=== PATIENT | male | born 1945 | race Caucasian/White ===

== ENCOUNTER 2017-05-03 07:52 | Day surgery (SDC) | payer MEDICARE, OTHER ==
[2017-05-03] MEDS ORDERED: LACTATED RINGERS 1,000 ML IV ONE (08:26)
[2017-05-03] MEDS ORDERED: MIDAZOLAM 2 MG/2 ML VIAL IVP ONE (09:11)
[2017-05-03] MEDS ORDERED: fentaNYL 100 MCG/2 ML VIAL IVP ONE (09:11)
[2017-05-03 10:47] VITALS: BP 268/67
== END 2017-05-03 07:53 | disposition home or self-care (01) ==
LOC: SDS 07:52
PROVIDERS: ATTEND Internal Medicine
PROC: 0DBE8ZX Excision of Large Intestine, Via Natural or Artificial Opening Endoscopic, Diagnostic (ICD-10-PCS; 2017-05-03)
PROC: 0DB58ZX Excision of Esophagus, Via Natural or Artificial Opening Endoscopic, Diagnostic (ICD-10-PCS; 2017-05-03)
PROC: 0DB68ZX Excision of Stomach, Via Natural or Artificial Opening Endoscopic, Diagnostic (ICD-10-PCS; 2017-05-03)
PROC: 0DBK8ZZ Excision of Ascending Colon, Via Natural or Artificial Opening Endoscopic (ICD-10-PCS; principal; 2017-05-03 09:00)
PROC: 0DBL8ZZ Excision of Transverse Colon, Via Natural or Artificial Opening Endoscopic (ICD-10-PCS; 2017-05-03 09:00)
DX: R19.7 Diarrhea, unspecified (principal); D12.2 Benign neoplasm of ascending colon; D12.3 Benign neoplasm of transverse colon; K25.9 Gastric ulcer, unspecified as acute or chronic, without hemorrhage or perforation; R19.4 Change in bowel habit; R13.10 Dysphagia, unspecified; K59.00 Constipation, unspecified; I10 Essential (primary) hypertension; I25.10 Atherosclerotic heart disease of native coronary artery without angina pectoris; I25.2 Old myocardial infarction; Z95.1 Presence of aortocoronary bypass graft
CPT/HCPCS: 43239; 45380; 45385; J7120; 88305

== ENCOUNTER 2017-05-17 15:29 | Outpatient (CLI) | payer MEDICARE, OTHER ==
[2017-05-17 18:50] LABS: ALBUMIN/GLOBULIN RATIO 1.6 (1.0-2.2); BILIRUBIN,TOTAL 0.8 mg/dL (0.2-1.0); BUN - BLOOD UREA NITROGEN 22 mg/dL (6-20); CALCIUM 9.2 mg/dL (8.5-10.3); CARBON DIOXIDE - CO2 28 mmol/L (21-32); CHLORIDE 105 mmol/L (101-111); CHOL/HDL RATIO 2.5 (<5.0); CHOLESTEROL 114 mg/dL; CREATININE 0.6 mg/dL (0.6-1.2); GFR - MDRD 132 (>89); GLUCOSE 89 mg/dL (70-100); HDL CHOLESTEROL 46 mg/dL; LDL/HDL RATIO 1.2 (<3.6); POTASSIUM 3.7 mmol/L (3.5-5.0); SODIUM 139 mmol/L (135-145); TOTAL PROTEIN 6.8 g/dL (6.7-8.2); TRIGLYCERIDES 61 mg/dL; VLDL CHOLESTEROL 12 mg/dL
[2017-05-17 19:01] LABS: H. PYLORI IGG ANTIBODY Negative (Negative); HPYLORI NEG QC Negative (Negative); HPYLORI POS QC POSITIVE (Positive)
== END 2017-05-17 15:30 | disposition home or self-care (01) ==
LOC: LAB.F 15:29
PROVIDERS: ATTEND Internal Medicine
DX: K25.3 Acute gastric ulcer without hemorrhage or perforation (principal); E78.00 Pure hypercholesterolemia, unspecified; I25.10 Atherosclerotic heart disease of native coronary artery without angina pectoris; R20.2 Paresthesia of skin
CPT/HCPCS: 36415; 80053; 80061; 84443; 87339

== ENCOUNTER 2017-07-04 17:39 | Emergency (ER) | payer MEDICARE, OTHER ==
--- NOTE | 2017-07-04 18:37 | XRAY Preliminary Report ---
Exam: XR Shoulder 3 View RT IMPRESSION: Mild separation right AC joint of indeterminate age. Correlate clinically. [facility] SITE ID: [id number]
--- NOTE | 2017-07-04 18:43 | XRAY Report ---
EXAM: RIGHT SHOULDER RADIOGRAPHY EXAM DATE: 07/04/2017 06:09 PM. CLINICAL HISTORY: Pain after an injury. COMPARISON: Two-view chest 07/07/2015. TECHNIQUE: 3 views. FINDINGS: Bones: Normal. No fracture or bone lesion. Joints: 8 mm elevation right clavicle relative to the acromion without bony reactive changes. Normal glenohumeral joint. Remote sternotomy. Soft tissues: Mild skin contour abnormality with equivocal edema over the AC joint. IMPRESSION: Mild separation right AC joint of indeterminate age. Correlate clinically. [facility] Referring Provider Line: [phone] SITE ID: [id number]
[2017-07-04 19:43] VITALS: BP 156/79
--- NOTE | 2017-07-04 20:10 | ED Physician Documentation ---
PD HPI UPPER EXT INJURY - Stated complaint Stated Complaint: RT SHOULDER INJ - Chief complaint Chief Complaint: Ext Problem - History obtained from History obtained from: Patient, Friend - History of Present Illness Location: Right, Shoulder Type of injury: Fall Where injury occurred: Street Timing - onset: How many hours ago (1) Timing - details: Abrupt onset Improved by: Rest, Ice, Immobilization Worsened by: Moving, Palpating Associated symptoms: No: Weakness, Numbness Contributing factors: No: Anticoagulated, Prior ortho surgery, Prosthetic joint Similar symptoms before: Has not had sx before Recently seen: Not recently seen - Additonal information Additional information: Patient is a 71 year old male who is presenting to the emergency department for shoulder pain. Patient states that he slipped earlier today and landed on his right side and his shoulder hit first taking the impact. patient denies any head trauma, or any loc. Review of Systems Constitutional: denies: Fever, Myalgias Eyes: denies: Loss of vision, Decreased vision Ears: denies: Ear pain, Drainage/discharge Nose: denies: Epistaxis Throat: denies: Dental pain / toothache Cardiac: denies: Chest pain / pressure, Palpitations Respiratory: denies: Cough, Wheezing GI: denies: Nausea, Vomiting Skin: denies: Abrasion (s), Laceration (s) Musculoskeletal: reports: Extremity pain, Joint pain. denies: Back pain Neurologic: denies: Generalized weakness, Focal weakness, Numbness, Syncope, Headache, Head injury, LOC Endocrine: denies: Easy bruising / bleeding Immunocompromised: denies: Immunocompromised PD PAST MEDICAL HISTORY - Past Medical History Past Medical History: Yes Cardiovascular: Hypertension, High cholesterol, Coronary artery disease, [place], Arrhythmia Respiratory: None Neuro: None Endocrine/Autoimmune:  GI: GERD, Colon polyps, Other : None HEENT: None Psych:  Musculoskeletal: Osteoarthritis Derm: None - Past Surgical History Past Surgical History: Yes General: Appendectomy, Colonoscopy, Other Ortho: Spine surgery Cardiovascular: CABG, Coronary stent - Present Medications Home Medications: Ambulatory Orders Medication Instructions Recorded Confirmed Aspirin 81 mg PO DAILY 07/14/13 07/04/17 Carvedilol [Coreg] 6.25 mg PO BID 07/14/13 07/04/17 Atorvastatin Calcium 1 tab PO DAILY 12/28/15 07/04/17 Omeprazole 20 mg ORAL DAILY 07/04/17 07/04/17 - Allergies Allergies/Adverse Reactions: Allergies Allergy/AdvReac Type Severity Reaction Status Date / Time No Known Drug Allergies Allergy Verified 07/04/17 17:47 - Social History Does the pt smoke?: No Smoking Status: Never smoker Does the pt drink ETOH?: No Does the pt have substance abuse?: No - Immunizations Immunizations are current?: Yes - POLST Patient has POLST: No PD ED PE NORMAL - Vitals Vital signs reviewed: Yes - General General: Alert and oriented X 3, No acute distress - HEENT HEENT: Atraumatic, PERRL, Pharynx benign - Neck Neck: Supple, no meningeal sign, No bony TTP - Cardiac Cardiac: RRR, No murmur - Respiratory Respiratory: No respiratory distress, Clear bilaterally - Abdomen Abdomen: Non distended - Back Back: No spinal TTP - Derm Derm: Normal color, Warm and dry, No rash - Neuro Neuro: Alert and oriented X 3, Normal speech - Psych Psych: Normal mood, Normal affect PD ED PE EXPANDED - Extremities Extremities: Right shoulder (tenderness and swelling of right shoulder. decreased rom secondary to pain, but full passive rom. minimal deformity) Results - Vitals Vitals: Vital Signs - 24 hr 07/04/17 07/04/17 17:44 19:42 Temperature 36.3 C L Heart Rate 58 L 60 Respiratory 18 18 Rate Blood Pressure 158/82 H 156/79 H O2 Saturation 99 98 Oxygen O2 Source Room air - Rads (name of study) shoulder x-ray Radiology: Final report received (minimal AC joint separation) PD MEDICAL DECISION MAKING - ED course Complexity details: reviewed old records, reviewed results, re-evaluated patient , considered differential, d/w patient ED course: Patient was seen and examined at bedside. patient had been sent for imaging. When patient returned he was found to have minimal AC separation. Patient had good peripheral pulses and was neurovascularly intact. Patient was placed in an immobilizer and was stable for discharge with outpatient follow up. Departure - Departure Disposition: 01 Home, Self Care Clinical Impression: Shoulder separation Condition: Good Instructions: ED Sprain AC Joint Follow-Up: Rey Latham MD [Provider Admit Priv/Credential] - Comments: Your symptoms today are being caused by a shoulder separation. It is a grade one separation and should heal on its own. You should ice your shoulder as needed and take motrin or tylenol as needed for pain. You should wear the brace for comfort. You should follow up with Dr. Latham as needed if your symptoms don't improve. Discharge Date/Time: 07/04/17 20:18
== END 2017-07-04 20:18 | disposition home or self-care (01) ==
LOC: ED 17:39
DX: S43.101A Unspecified dislocation of right acromioclavicular joint, initial encounter (principal); W19.XXXA Unspecified fall, initial encounter; Y92.410 Unspecified street and highway as the place of occurrence of the external cause; I25.2 Old myocardial infarction; I10 Essential (primary) hypertension; I25.10 Atherosclerotic heart disease of native coronary artery without angina pectoris; Z95.1 Presence of aortocoronary bypass graft; Z95.5 Presence of coronary angioplasty implant and graft; Z79.82 Long term (current) use of aspirin
CPT/HCPCS: 99283

== ENCOUNTER 2017-09-18 15:56 | Outpatient (CLI) | payer MEDICARE, OTHER ==
[2017-09-18 18:49] LABS: ALBUMIN/GLOBULIN RATIO 1.6 (1.0-2.2); BILIRUBIN,TOTAL 0.7 mg/dL (0.2-1.0); CALCIUM 9.5 mg/dL (8.5-10.3); CREATININE 0.7 mg/dL (0.6-1.2); POTASSIUM 4.2 mmol/L (3.5-5.0); TOTAL PROTEIN 6.9 g/dL (6.7-8.2)
== END 2017-09-18 15:57 | disposition home or self-care (01) ==
LOC: LAB.F 15:56
PROVIDERS: ATTEND Physician Assistant Medical
DX: Z51.81 Encounter for therapeutic drug level monitoring (principal)
CPT/HCPCS: 36415; 80053

== ENCOUNTER 2018-06-13 10:33 | Day surgery (SDC) | payer MEDICARE, OTHER ==
[2018-06-13] MEDS ORDERED: LACTATED RINGERS 1,000 ML IV ONE (11:15)
[2018-06-13] MEDS ORDERED: fentaNYL 250 MCG/5 ML VIAL IVP ONE (12:17)
[2018-06-13] MEDS ORDERED: MIDAZOLAM 2 MG/2 ML VIAL IVP ONE (12:17)
[2018-06-13 13:42] VITALS: BP 125/87
== END 2018-06-13 10:34 | disposition home or self-care (01) ==
LOC: SDS 10:33
PROVIDERS: ATTEND Internal Medicine
PROC: 0DBL8ZZ Excision of Transverse Colon, Via Natural or Artificial Opening Endoscopic (ICD-10-PCS; 2018-06-13)
PROC: 0DBN8ZZ Excision of Sigmoid Colon, Via Natural or Artificial Opening Endoscopic (ICD-10-PCS; 2018-06-13)
PROC: 0DBK8ZZ Excision of Ascending Colon, Via Natural or Artificial Opening Endoscopic (ICD-10-PCS; principal; 2018-06-13 12:00)
DX: Z09 Encounter for follow-up examination after completed treatment for conditions other than malignant neoplasm (principal); Z86.010 Personal history of colon polyps; D12.2 Benign neoplasm of ascending colon; D12.5 Benign neoplasm of sigmoid colon; D12.3 Benign neoplasm of transverse colon; K64.8 Other hemorrhoids
CPT/HCPCS: 45385; J3010; J7120

== ENCOUNTER 2019-04-22 08:00 | Outpatient (CLI) | payer MEDICARE, OTHER ==
[2019-04-22 12:20] LABS: CHOL/HDL RATIO 2.7 (<5.0); CHOLESTEROL 131 mg/dL; HDL CHOLESTEROL 48 mg/dL; LDL CHOLESTEROL,CALCULATED 51 mg/dL; LDL/HDL RATIO 1.1 (<3.6); VLDL CHOLESTEROL 32 mg/dL
== END 2019-04-22 23:59 | disposition home or self-care (01) ==
LOC: LAB 08:00
PROVIDERS: ATTEND Internal Medicine Cardiovascular Disease
DX: I25.10 Atherosclerotic heart disease of native coronary artery without angina pectoris (principal)
CPT/HCPCS: 36415; 80061; 83721

== ENCOUNTER 2020-07-27 08:00 | Outpatient (CLI) | payer MEDICARE, OTHER ==
[2020-07-27 20:29] LABS: BILIRUBIN,URINE NEGATIVE (NEGATIVE); GLUCOSE, URINE (UA) NEGATIVE (NEGATIVE); KETONES,URINE (UA) NEGATIVE (NEGATIVE); LEUKOCYTE ESTERASE, URINE NEGATIVE (NEGATIVE); NITRITE,URINE NEGATIVE (NEGATIVE); OCCULT BLOOD,URINE NEGATIVE (NEGATIVE); PROTEIN,URINE NEGATIVE (NEGATIVE); UROBILINOGEN,URINE 0.2 (NORMAL) E.U./dL (NORMAL)
[2020-07-27 20:31] LABS: CLARITY,URINE CLEAR (CLEAR)
[2020-07-27 20:50] LABS: BACTERIA,URINE None Seen /HPF (None Seen); RBC,URINE 0-5 /HPF (0-5); SQUAMOUS EPITHELIAL CELL,UR RARE Squamous (<= Few)
== END 2020-07-27 23:59 | disposition home or self-care (01) ==
LOC: LAB.R 08:00
PROVIDERS: ATTEND Emergency Medicine
DX: N34.2 Other urethritis (principal)
CPT/HCPCS: 81001; 87086

== ENCOUNTER 2021-07-02 07:43 | Outpatient (CLI) | payer MEDICARE, OTHER ==
[2021-07-02 07:56] LABS: BASOPHILS % (AUTO) 0.6 %; EOSINOPHILS # (AUTO) 0.3 10^3/uL (0.0-0.7); EOSINOPHILS % (AUTO) 4.3 %; HCT - HEMATOCRIT 46.5 % (42.0-52.0); HGB - HEMOGLOBIN 15.3 g/dL (14.0-18.0); LYMPHOCYTES # (AUTO) 2.3 10^3/uL (1.5-3.5); LYMPHOCYTES % (AUTO) 35.3 %; MEAN CORPUSCULAR HGB CONC 32.9 g/dL (32.0-36.0); MEAN CORPUSCULAR VOLUME 94.1 fL (80.0-94.0); MEAN PLATELET VOLUME 10.3 fL (7.4-11.4); MONOCYTES # (AUTO) 0.6 10^3/uL (0.0-1.0); MONOCYTES % (AUTO) 8.8 %; NEUTROPHILS # (AUTO) 3.3 10^3/uL (1.5-6.6); NEUTROPHILS % (AUTO) 50.7 %; PLT - PLATELET COUNT 226 10^3/uL (130-450); RED BLOOD COUNT 4.94 10^6/uL (4.70-6.10); RED CELL DISTRIBUTION WIDTH 13.1 % (12.0-15.0); WHITE BLOOD COUNT 6.5 x10^3/uL (4.8-10.8)
[2021-07-02 08:20] LABS: ALBUMIN 4.2 g/dL (3.2-5.5); ALBUMIN/GLOBULIN RATIO 1.4 (1.0-2.2); ALKALINE PHOSPHATASE 43 IU/L (42-121); ALT ALANINE AMINOTRANSFERASE 31 IU/L (10-60); AST ASPARTATE AMINOTRANSFERASE 25 IU/L (10-42); BILIRUBIN,TOTAL 0.9 mg/dL (0.2-1.0); BUN - BLOOD UREA NITROGEN 16 mg/dL (6-20); CALCIUM 9.1 mg/dL (8.5-10.3); CARBON DIOXIDE - CO2 28 mmol/L (21-32); CHLORIDE 101 mmol/L (101-111); CHOL/HDL RATIO 2.4 (<5.0); CHOLESTEROL 105 mg/dL; CREATININE 0.7 mg/dL (0.6-1.2); GFR - MDRD 109 (>89); GLUCOSE 112 mg/dL (70-100); HDL CHOLESTEROL 43 mg/dL; LDL CHOLESTEROL,CALCULATED 45 mg/dL; POTASSIUM 4.1 mmol/L (3.5-5.0); SODIUM 136 mmol/L (135-145); TOTAL PROTEIN 7.1 g/dL (6.7-8.2); TRIGLYCERIDES 86 mg/dL; VLDL CHOLESTEROL 17 mg/dL
[2021-07-02 08:27] LABS: THYROID STIMULATING HORMONE 2.59 uIU/mL (0.34-5.60)
== END 2021-07-02 07:44 | disposition home or self-care (01) ==
LOC: LAB 07:43
PROVIDERS: ATTEND Physician Assistant
DX: I25.10 Atherosclerotic heart disease of native coronary artery without angina pectoris (principal); Z79.899 Other long term (current) drug therapy; K21.9 Gastro-esophageal reflux disease without esophagitis; E78.5 Hyperlipidemia, unspecified
CPT/HCPCS: 36415; 80053; 80061; 83721; 84153; 84443; 85025

== ENCOUNTER 2021-07-15 07:42 | Outpatient (CLI) | payer MEDICARE, OTHER ==
[2021-07-15 08:26] LABS: BASOPHILS # (AUTO) 0.1 10^3/uL (0.0-0.1); EOSINOPHILS # (AUTO) 0.3 10^3/uL (0.0-0.7); HCT - HEMATOCRIT 45.6 % (42.0-52.0); HGB - HEMOGLOBIN 15.2 g/dL (14.0-18.0); LYMPHOCYTES # (AUTO) 2.2 10^3/uL (1.5-3.5); LYMPHOCYTES % (AUTO) 37.5 %; MEAN CORPUSCULAR HEMOGLOBIN 31.1 pg (27.0-31.0); MEAN CORPUSCULAR HGB CONC 33.3 g/dL (32.0-36.0); MEAN CORPUSCULAR VOLUME 93.4 fL (80.0-94.0); MONOCYTES # (AUTO) 0.5 10^3/uL (0.0-1.0); MONOCYTES % (AUTO) 9.3 %; NEUTROPHILS # (AUTO) 2.7 10^3/uL (1.5-6.6); PLT - PLATELET COUNT 248 10^3/uL (130-450); RED BLOOD COUNT 4.88 10^6/uL (4.70-6.10); RED CELL DISTRIBUTION WIDTH 13.2 % (12.0-15.0); WHITE BLOOD COUNT 5.8 x10^3/uL (4.8-10.8)
[2021-07-15 08:47] LABS: BUN - BLOOD UREA NITROGEN 17 mg/dL (6-20); CALCIUM 9.3 mg/dL (8.5-10.3); CARBON DIOXIDE - CO2 28 mmol/L (21-32); CHLORIDE 104 mmol/L (101-111); CHOL/HDL RATIO 2.8 (<5.0); CHOLESTEROL 119 mg/dL; CREATININE 0.9 mg/dL (0.6-1.2); GFR - MDRD 82 (>89); GLUCOSE 117 mg/dL (70-100); HDL CHOLESTEROL 43 mg/dL; LDL CHOLESTEROL,CALCULATED 57 mg/dL; LDL/HDL RATIO 1.3 (<3.6); POTASSIUM 4.1 mmol/L (3.5-5.0); SODIUM 139 mmol/L (135-145); TRIGLYCERIDES 94 mg/dL; VLDL CHOLESTEROL 19 mg/dL
== END 2021-07-15 07:43 | disposition home or self-care (01) ==
LOC: LAB 07:42
PROVIDERS: ATTEND Internal Medicine Cardiovascular Disease
DX: E78.5 Hyperlipidemia, unspecified (principal); I25.10 Atherosclerotic heart disease of native coronary artery without angina pectoris
CPT/HCPCS: 36415; 80048; 80061; 83721; 85025

== ENCOUNTER 2021-09-10 08:00 | Outpatient (CLI) | payer MEDICARE, OTHER | END 2021-09-10 23:59 | LOC: LAB 08:00 | PROVIDERS: ATTEND Physician Assistant Medical | DX: R39.9 Unspecified symptoms and signs involving the genitourinary system (principal) | CPT/HCPCS: 87086 ==

== ENCOUNTER 2021-11-25 15:18 | Outpatient (CLI) | payer MEDICARE, OTHER ==
--- NOTE | 2021-11-26 10:06 | Ultrasound Report ---
PROCEDURE: Carotid Doppler Complete INDICATIONS: DIZZINESS TECHNIQUE: Color and pulse Doppler interrogation was performed of both carotid systems, with image documentation and velocity measurements. COMPARISON: None. FINDINGS: Right side: Brachial blood pressure: 128/73 mm Hg. Common carotid artery peak systolic velocity: 92 cm/sec. Internal carotid artery peak systolic velocity: 87 cm/sec. Internal carotid artery end diastolic velocity: 24 cm/sec. External carotid artery peak systolic velocity: 82 cm/sec. ICA/CCA peak systolic ratio: 1.0 . Castro scale imaging description: Calcified plaque Percent internal carotid artery stenosis: Less than 50% . Vertebral artery: Flow direction is antegrade. Left side: Brachial blood pressure: 128/74 mm Hg. Common carotid artery peak systolic velocity: 92 cm/sec. Internal carotid artery peak systolic velocity: 72 cm/sec. Internal carotid artery end diastolic velocity: 22 cm/sec. External carotid artery peak systolic velocity: 99 cm/sec. ICA/CCA peak systolic ratio: 0.8 . Castro scale imaging description: Calcified plaque Percent internal carotid artery stenosis: Less than 50% . Vertebral artery: Flow direction is antegrade. IMPRESSION: Less than 50% stenosis of the origins of the right and left internal carotid arteries. The estimate of stenosis included in the report of the imaging study was calculated using the NASCET method Reviewed by: Rosenda Nina MD, PhD on 11/26/2021 10:05 AM [facility] Approved by: Rosenda Nina MD, PhD on 11/26/2021 10:05 AM [facility] Station ID: [id number]
== END 2021-11-25 15:19 | disposition home or self-care (01) ==
LOC: DI 15:18
PROVIDERS: ATTEND Internal Medicine
DX: R42 Dizziness and giddiness (principal)
CPT/HCPCS: 93880

== ENCOUNTER 2022-03-22 11:22 | Emergency (ER) | payer MEDICARE, OTHER ==
[2022-03-22 11:31] VITALS: BP 157/110
--- NOTE | 2022-03-22 12:06 | XRAY Report ---
PROCEDURE: Chest 2 View X-Ray INDICATIONS: cough TECHNIQUE: 2 view(s) of the chest. COMPARISON: None. FINDINGS: Surgical changes and devices: Median sternotomy wires and surgical clips are seen. Lungs and pleura: No pleural effusions or pneumothorax. Lungs are clear. Mediastinum: Mediastinal contours are normal. Heart size is normal. Bones and chest wall: No suspicious bony abnormalities. Soft tissues appear unremarkable. IMPRESSION: No acute cardiopulmonary pathology. Reviewed by: Cuba Velazquez MD on 03/22/2022 12:05 PM PDT Approved by: Cuba Velazquez MD on 03/22/2022 12:05 PM PDT Station ID: [id number]
[2022-03-22] MEDS ORDERED: KETOROLAC 30 MG/ML VIAL IM STA (12:45)
[2022-03-22] MEDS ORDERED: NIRMATRELVIR/RITONAVIR PREPACK PO STA (12:46)
--- NOTE | 2022-03-22 12:48 | ED Physician Documentation ---
PD HPI URI - Stated complaint Stated Complaint: FEVER/HEAD PX/COUGH - Chief complaint Chief Complaint: Neuro - History obtained from History obtained from: Patient - History of Present Illness Timing - onset: How many days ago (3) Timing duration: Days (3) Associated symptoms: Fever, Ear pain, Nasal congestion, Sore throat, Dry cough Improves by: Rest, Medication Similar symptoms before: Has not had sx before Recently seen: Not recently seen - Additional information Additional information: Alexx Kincaid is a 76-year-old male who is vaccinated and boosted for COVID he has developed a cough congestion and fever 3 days ago and presents to the emergency department today for evaluation. He has some pain in his left ear he has some muffled hearing and a slight sore throat as well as a cough. Review of Systems Constitutional: reports: Fever, Myalgias, Fatigue Eyes: denies: Decreased vision Ears: reports: Loss of hearing, Ear pain Nose: reports: Congestion Throat: reports: Sore throat Cardiac: denies: Chest pain / pressure, Palpitations Respiratory: reports: Cough. denies: Dyspnea GI: denies: Vomiting PD PAST MEDICAL HISTORY - Past Medical History Past Medical History: Yes Cardiovascular: Hypertension, High cholesterol, Coronary artery disease, [place], Arrhythmia Respiratory: None Neuro: None Endocrine/Autoimmune: None GI: GERD, Colon polyps, Other : None HEENT: None Psych: None Musculoskeletal: Osteoarthritis Derm: None - Past Surgical History Past Surgical History: Yes General: Appendectomy, Colonoscopy, Other Ortho: Spine surgery Cardiovascular: CABG, Coronary stent - Present Medications Home Medications: Ambulatory Orders Medication Instructions Recorded Confirmed Carvedilol [Coreg] 6.25 mg PO BID 07/14/13 03/22/22 Cholecalciferol (Vitamin D3) 2,000 unit PO DAILY 06/12/18 03/22/22 [Vitamin D] Multivitamin [Multiple Vitamins] 1 each PO DAILY 06/12/18 03/22/22 raNITIdine HCl [Acid Swatch Maker] 75 mg PO DAILY 06/12/18 03/22/22 Amox/Clav 875/125 [Augmentin] 1 each PO Q12H #20 tablet 03/22/22 Rosuvastatin Calcium [Crestor] 40 mg PO HS 03/22/22 03/22/22 - Allergies Allergies/Adverse Reactions: Allergies Allergy/AdvReac Type Severity Reaction Status Date / Time No Known Drug Allergies Allergy Verified 06/12/18 14:52 - Social History Does the pt smoke?: No Smoking Status: Never smoker Does the pt drink ETOH?: No Does the pt have substance abuse?: No - Immunizations Immunizations are current?: Yes - POLST Patient has POLST: No PD ED PE NORMAL - Vitals Vital signs reviewed: Yes (hypertensive) - General General: Alert and oriented X 3, No acute distress, Well developed/nourished - HEENT HEENT: Atraumatic, PERRL, EOMI, Other (right TM is clear the left is with peripheral erythema and distortion of the landmarks. ) - Neck Neck: Supple, no meningeal sign, No bony TTP - Cardiac Cardiac: RRR, No murmur - Respiratory Respiratory: No respiratory distress, Clear bilaterally - Abdomen Abdomen: Soft, Non tender - Back Back: No CVA TTP, No spinal TTP - Derm Derm: Normal color, Warm and dry, No rash - Extremities Extremities: No deformity, No edema - Neuro Neuro: Alert and oriented X 3, trouble locater 2-12 intact, No motor deficit, No sensory deficit, Normal speech Eye Opening: Spontaneous Motor: Obeys Commands Verbal: Oriented GCS Score: 15 - Psych Psych: Normal mood, Normal affect Results - Vitals Vitals: Vital Signs - 24 hr 03/22/22 11:29 Temperature 36.9 C Heart Rate 71 Respiratory 18 Rate Blood Pressure 157/110 H O2 Saturation 97 Oxygen O2 Source Room air - Labs Labs: Laboratory Tests 03/22/22 11:36 SARS-CoV-2 (PCR) DETECTED A - Rads (name of study) chest Radiology: Prelim report reviewed (Impression no acute cardiopulmonary pathology.), EMP read indepedently, See rad report PD MEDICAL DECISION MAKING - ED course Complexity details: reviewed old records, reviewed results, re-evaluated patient, considered differential, d/w patient ED course: 76-year-old male with a history of hypertension and benign prostatic hypertrophy has developed a cough and congestion with a headache over the past 3 days. He does have some muffled hearing in his left ear. He does not have a sore throat or shortness of breath. He has been vaccinated and boosted and he is now COVID- positive today. He has a test in our system, he has had symptoms less than 5 days and he has no contraindications to the use of Paxil of it. He is given a shot of Toradol for his headache. He does have otitis on exam we will treat this with Augmentin. Departure - Departure Disposition: 01 Home, Self Care Clinical Impression: COVID Otitis media Qualifiers: Otitis media type: suppurative Chronicity: acute Laterality: left Recurrence: non-recurrent Spontaneous tympanic membrane rupture: without spontaneous rupture Qualified Code(s): H66.002 - Acute suppurative otitis media without spontaneous rupture of ear drum, left ear Condition: Stable Instructions: ED Otitis Media Acute Adult, COVID-19 [facility], Flu and Cold: Nutrition, Prevention and Treatment Tips Follow-Up: Mohan Fish MD [Provider Admit Priv/Credential] - Prescriptions: Amox/Clav 875/125 [Augmentin] 1 each PO Q12H #20 tablet Comments: Alexx today it looks like you have COVID. There also is an infection in the left middle ear. We have provided the Paxil did a antiviral that you will need to take for 5 days with the expectation that this will speed to recover any and decrease the length of time you are shedding virus. Retest with a home test in about 5 days and if this is negative you can go back to [facility]. I have E scribed the Augmentin to the community pharmacy here in [place].The mainstay of treatment for COVID is to treat any fever with Tylenol and provide additional fluids. The care for COVID is supportive. Discharge Date/Time: 03/22/22 13:30
== END 2022-03-22 13:30 | disposition home or self-care (01) ==
LOC: ED 11:22
DX: U07.1 COVID-19 (principal); H66.002 Acute suppurative otitis media without spontaneous rupture of ear drum, left ear; I10 Essential (primary) hypertension; Z95.1 Presence of aortocoronary bypass graft; Z95.5 Presence of coronary angioplasty implant and graft
CPT/HCPCS: 71046; 87635; 96372; 99284; J3490

== ENCOUNTER 2022-05-05 23:05 | Outpatient (CLI) | payer MEDICARE, OTHER | END 2022-05-05 23:06 | disposition critical access hospital (66) | LOC: EMS 23:05 | DX: R10.31 Right lower quadrant pain (principal) | CPT/HCPCS: A0425; A0429 ==

== ENCOUNTER 2022-05-05 23:14 | Emergency (ER) | payer MEDICARE, OTHER ==
[2022-05-05 23:37] LABS: BILIRUBIN,URINE NEGATIVE (NEGATIVE); GLUCOSE, URINE (UA) NEGATIVE (NEGATIVE); KETONES,URINE (UA) NEGATIVE (NEGATIVE); LEUKOCYTE ESTERASE, URINE NEGATIVE (NEGATIVE); NITRITE,URINE NEGATIVE (NEGATIVE); OCCULT BLOOD,URINE NEGATIVE (NEGATIVE); PROTEIN,URINE NEGATIVE (NEGATIVE); UROBILINOGEN,URINE 0.2 (NORMAL) E.U./dL (NORMAL)
[2022-05-05 23:51] LABS: CLARITY,URINE CLEAR (CLEAR)
[2022-05-05 23:53] LABS: BASOPHILS # (AUTO) 0.1 10^3/uL (0.0-0.1); BASOPHILS % (AUTO) 0.8 %; EOSINOPHILS # (AUTO) 0.2 10^3/uL (0.0-0.7); EOSINOPHILS % (AUTO) 3.4 %; HCT - HEMATOCRIT 43.9 % (42.0-52.0); HGB - HEMOGLOBIN 14.3 g/dL (14.0-18.0); LYMPHOCYTES # (AUTO) 2.7 10^3/uL (1.5-3.5); LYMPHOCYTES % (AUTO) 43.3 %; MEAN CORPUSCULAR HEMOGLOBIN 30.5 pg (27.0-31.0); MEAN CORPUSCULAR HGB CONC 32.6 g/dL (32.0-36.0); MEAN CORPUSCULAR VOLUME 93.6 fL (80.0-94.0); MEAN PLATELET VOLUME 10.9 fL (7.4-11.4); MONOCYTES # (AUTO) 0.6 10^3/uL (0.0-1.0); MONOCYTES % (AUTO) 10.1 %; NEUTROPHILS # (AUTO) 2.6 10^3/uL (1.5-6.6); NEUTROPHILS % (AUTO) 42.2 %; PLT - PLATELET COUNT 240 10^3/uL (130-450); RED BLOOD COUNT 4.69 10^6/uL (4.70-6.10); RED CELL DISTRIBUTION WIDTH 13.5 % (12.0-15.0); WHITE BLOOD COUNT 6.1 x10^3/uL (4.8-10.8)
[2022-05-06 00:05] LABS: ALBUMIN 4.2 g/dL (3.2-5.5); ALBUMIN/GLOBULIN RATIO 1.4 (1.0-2.2); BILIRUBIN,TOTAL 0.7 mg/dL (0.2-1.0); CALCIUM 9.2 mg/dL (8.5-10.3); CREATININE 0.8 mg/dL (0.6-1.2); POTASSIUM 4.1 mmol/L (3.5-5.0); TOTAL PROTEIN 7.1 g/dL (6.7-8.2)
--- NOTE | 2022-05-06 00:12 | CT Report ---
PROCEDURE: Abdomen/Pelvis WO INDICATIONS: RLQ pain TECHNIQUE: Noncontrast 5 mm thick sections acquired from the diaphragms to the symphysis. 5 mm coronal and sagi ttal reformats were then performed. For radiation dose reduction, the following was used: automated exposure control, adjustment of mA and/or kV according to patient size. COMPARISON: CT abdomen pelvis 11/11/2014. FINDINGS: Image quality: Excellent. Lung bases:There is mild dependent atelectasis and scarring the lung bases. Heart: Heart is normal in size. ABDOMEN: Liver:Noncontrast evaluation of the liver demonstrates no discrete hepatic mass. Gallbladder: Withi n normal limits without calcified gallstones. Biliary ducts: No biliary ductal dilatation. Pancreas: Unremarkable. Spleen: Normal in size. Adrenal Glands: No adrenal nodules. Kidneys and Ureters: No hydronephrosis. Stomach and Bowel: Stomach, small bowel loops, and colon are normal in caliber and wall thickness. T here are surgical sutures along the cecum likely related to prior appendectomy. There is colonic dive rticulosis without acute diverticulitis. Peritoneum: No abnormal intraperitoneal fluid. No free air. Ventral Wall: No hernia. Abdominal Nodes: No retroperitoneal or mesenteric adenopathy by size criteria. Vessels: Aorta and inferior vena cava are normal in size. PELVIS: Pelvic Organs: Unremarkable. Bladder:The bladder is partially distended. There is mild bladder wall thickening with associated mi ld fat stranding suggestive of a cystitis. Pelvic Nodes: No enlarged lymph nodes. Miscellaneous: There is a small fat-containing right inguinal hernia with associated mild fat strandi ng. Bones: Visualized osseous structures demonstrate no suspicious focal lesions. IMPRESSION: 1. Small fat-containing right inguinal hernia. 2. Surgical absence of the appendix. No pericecal plantar changes. 3. Colonic diverticulosis without acute diverticular colitis. 4. Mild bladder wall thickening with associated mild fat stranding suggestive of a cystitis. Recommen d correlation with urinalysis. Reviewed by: Jose E Bean MD on 05/06/2022 12:10 AM PDT Approved by: Jose E Bean MD on 05/06/2022 12:10 AM PDT Station ID: [id number]
--- NOTE | 2022-05-06 00:19 | ED Physician Documentation ---
PD HPI ABD PAIN - Stated complaint Stated Complaint: ABD PX - Chief complaint Chief Complaint: Abd Pain - History obtained from History obtained from: Patient - Additional information Additional information: Patient is a 76-year-old male with a history of appendectomy and left inguinal hernia Repair presenting for evaluation of a right lower abdominal pain that started this evening at 10:00 as he was getting ready for bed. He reports the pain was sharp and dull. It did not radiate. He felt a bulge in the area. He did not have associated nausea, vomiting or diarrhea. No fever, cough or conges tion. No dysuria or hematuria. The pain has improved.He does not take a blood thinner. Review of Systems Constitutional: denies: Fever Nose: denies: Congestion Cardiac: denies: Chest pain / pressure, Palpitations Respiratory: denies: Dyspnea, Cough GI: reports: Abdominal Pain. denies: Nausea, Vomiting, Diarrhea, Bloody / black stool : denies: Dysuria Musculoskeletal: denies: Back pain Neurologic: denies: Generalized weakness, Headache PD PAST MEDICAL HISTORY - Past Medical History Past Medical History: Yes Cardiovascular: Hypertension, High cholesterol, Coronary artery disease, [place], Arrhythmia Respiratory: None Neuro: None Endocrine/Autoimmune: None GI: GERD, Colon polyps, Other : None HEENT: None Psych: None Musculoskeletal: Osteoarthritis Derm: None - Past Surgical History Past Surgical History: Yes General: Appendectomy, Colonoscopy, Other Ortho: Spine surgery Cardiovascular: CABG, Coronary stent - Present Medications Home Medications: Ambulatory Orders Medication Instructions Recorded Confirmed Carvedilol [Coreg] 6.25 mg PO BID 07/14/13 03/22/22 Cholecalciferol (Vitamin D3) 2,000 unit PO DAILY 06/12/18 03/22/22 [Vitamin D] Multivitamin [Multiple Vitamins] 1 each PO DAILY 06/12/18 03/22/22 raNITIdine HCl [Acid Box Annealer] 75 mg PO DAILY 06/12/18 03/22/22 Amox/Clav 875/125 [Augmentin] 1 each PO Q12H #20 tablet 03/22/22 Rosuvastatin Calcium [Crestor] 40 mg PO HS 03/22/22 03/22/22 - Allergies Allergies/Adverse Reactions: Allergies Allergy/AdvReac Type Severity Reaction Status Date / Time No Known Drug Allergies Allergy Verified 05/05/22 23:21 - Social History Does the pt smoke?: No Smoking Status: Never smoker Does the pt drink ETOH?: No Does the pt have substance abuse?: No - Immunizations Immunizations are current?: Yes - POLST Patient has POLST: No PD ED PE NORMAL - General General: Alert and oriented X 3, No acute distress, Well developed/nourished - HEENT HEENT: Atraumatic, Moist mucous membranes - Neck Neck: Supple, no meningeal sign - Cardiac Cardiac: RRR, No murmur, Strong equal pulses - Respiratory Respiratory: No respiratory distress, Clear bilaterally - Abdomen Abdomen: Normal bowel sounds, Soft, Non tender, Non distended, Other (No palpable hernia, no masses, No tenderness in bilateral inguinal regions) - Derm Derm: Warm and dry - Extremities Extremities: No edema - Neuro Neuro: Normal speech Results - Vitals Vitals: Vital Signs - 24 hr 05/05/22 05/05/22 05/06/22 23:21 23:23 00:47 Temperature 36.6 C 36.6 C Heart Rate 60 60 72 Respiratory 16 16 14 Rate Blood Pressure 176/76 H 176/76 H 133/86 H O2 Saturation 98 98 98 Oxygen O2 Source Room air - EKG (time done) 1223 Rate: Rate (enter#) (53) Rhythm: Sinus bradycardia [place]: LAD Ischemia: No: ST elevation c/w ischemia Other comments: Other comments (Motion artifact in multiple leads affecting interpretation of the baseline) - Labs Labs: Laboratory Tests 05/05/22 05/05/22 05/05/22 23:30 23:45 23:45 WBC 6.1 RBC 4.69 L Hgb 14.3 Hct 43.9 MCV 93.6 MCH 30.5 MCHC 32.6 RDW 13.5 Plt Count 240 MPV 10.9 Neut # (Auto) 2.6 Lymph # (Auto) 2.7 [place] # (Auto) 0.6 Eos # (Auto) 0.2 Baso # (Auto) 0.1 Absolute Nucleated RBC 0.00 Nucleated RBC % 0.0 Sodium 138 Potassium 4.1 Chloride 103 Carbon Dioxide 27 Anion Gap 8.0 BUN 17 Creatinine 0.8 Estimated GFR (MDRD) 93 Glucose 101 H Calcium 9.2 Total Bilirubin 0.7 AST 19 ALT 21 Alkaline Phosphatase 42 Total Protein 7.1 Albumin 4.2 Globulin 2.9 Albumin/Globulin Ratio 1.4 Lipase 90 H Urine Color YELLOW Urine Clarity CLEAR Urine pH 6.0 Ur Specific [place] >=1.030 H Urine Protein NEGATIVE Urine Glucose (UA) NEGATIVE Urine Ketones NEGATIVE Urine Occult Blood NEGATIVE Urine Nitrite NEGATIVE Urine Bilirubin NEGATIVE Urine Urobilinogen 0.2 (NORMAL) Ur Leukocyte Esterase NEGATIVE Ur Microscopic Review NOT INDICATED Urine Culture Comments NOT INDICATED PD MEDICAL DECISION MAKING - ED course Complexity details: reviewed results, re-evaluated patient, d/w patient ED course: Patient with right lower abdominal pain. Pain has improved since arriving to the ER. No palpable hernia or mass. Labs are reassuring and CT scan with signs of small fat-containing inguinal hernia. Again on repeat exam I see no signs of strangulation or incarcerated hernia. Patient is currently pain-free and made aware of CT findings and need for follow-up with primary care doctor. He is aware he may need referral to general surgery. He is advised on strict return precautions. 1215 - Abdominal exam remains benign, no signs of incarcerated or strangulated hernia. Tech at bedside doing EKG as patient was noted to have episodes of bradycardia into the 30s. Patient denies dizziness, weakness, chest pain or difficulty breathing. Departure - Departure Disposition: 01 Home, Self Care Clinical Impression: Right inguinal hernia Condition: Stable Instructions: ED Hernia Inguinal Follow-Up: Mohan Fish MD [Provider Admit Priv/Credential] - Comments: You were evaluated for pain to the right lower abdomen and found to have a small inguinal hernia. At this time, the hernia is reducible and there are no complications requiring an emergent surgery to have it repaired.Please follow-up with your primary care doctor as scheduled in 1 week as you may need referral to a general surgeon. If it anytime you have worsening pain, notice bulge or a mass that is not able to be pushed back down then consider returning to the emergency department. Discharge Date/Time: 05/06/22 01:04
[2022-05-06 00:49] VITALS: BP 133/86
== END 2022-05-06 01:04 | disposition home or self-care (01) ==
LOC: EDUNIT# → ED 23:14
DX: K40.90 Unilateral inguinal hernia, without obstruction or gangrene, not specified as recurrent (principal)
CPT/HCPCS: 36415; 80053; 81001; 81003; 83690; 85025; 87086; 93005; 99282; 99284

== ENCOUNTER 2022-07-26 08:08 | Outpatient (CLI) | payer MEDICARE, OTHER ==
[2022-07-26 08:30] LABS: BASOPHILS # (AUTO) 0.1 10^3/uL (0.0-0.1); BASOPHILS % (AUTO) 0.7 %; EOSINOPHILS # (AUTO) 0.6 10^3/uL (0.0-0.7); EOSINOPHILS % (AUTO) 9.2 %; HCT - HEMATOCRIT 44.1 % (42.0-52.0); HGB - HEMOGLOBIN 14.9 g/dL (14.0-18.0); LYMPHOCYTES # (AUTO) 2.3 10^3/uL (1.5-3.5); LYMPHOCYTES % (AUTO) 32.3 %; MEAN CORPUSCULAR HEMOGLOBIN 31.5 pg (27.0-31.0); MEAN CORPUSCULAR HGB CONC 33.8 g/dL (32.0-36.0); MEAN CORPUSCULAR VOLUME 93.2 fL (80.0-94.0); MEAN PLATELET VOLUME 10.5 fL (7.4-11.4); MONOCYTES # (AUTO) 0.7 10^3/uL (0.0-1.0); MONOCYTES % (AUTO) 9.3 %; NEUTROPHILS # (AUTO) 3.4 10^3/uL (1.5-6.6); NEUTROPHILS % (AUTO) 48.4 %; PLT - PLATELET COUNT 223 10^3/uL (130-450); RED BLOOD COUNT 4.73 10^6/uL (4.70-6.10); RED CELL DISTRIBUTION WIDTH 13.1 % (12.0-15.0)
[2022-07-26 08:44] LABS: BUN - BLOOD UREA NITROGEN 26 mg/dL (6-20); CALCIUM 9.4 mg/dL (8.5-10.3); CARBON DIOXIDE - CO2 30 mmol/L (21-32); CHLORIDE 104 mmol/L (101-111); CHOL/HDL RATIO 2.1 (<5.0); CHOLESTEROL 104 mg/dL; CREATININE 0.8 mg/dL (0.6-1.2); GFR - MDRD 93 (>89); GLUCOSE 105 mg/dL (70-100); HDL CHOLESTEROL 49 mg/dL; LDL CHOLESTEROL,CALCULATED 42 mg/dL; LDL/HDL RATIO 0.9 (<3.6); SODIUM 141 mmol/L (135-145); TRIGLYCERIDES 63 mg/dL; VLDL CHOLESTEROL 13 mg/dL
== END 2022-07-26 08:09 | disposition home or self-care (01) ==
LOC: LAB 08:08
PROVIDERS: ATTEND Internal Medicine Cardiovascular Disease
DX: I25.10 Atherosclerotic heart disease of native coronary artery without angina pectoris (principal); E78.5 Hyperlipidemia, unspecified
CPT/HCPCS: 36415; 80048; 80061; 83721; 85025

== ENCOUNTER 2022-08-27 20:47 | Emergency (ER) | payer MEDICARE, OTHER ==
[2022-08-27 20:56] VITALS: BP 177/94
--- NOTE | 2022-08-27 21:13 | ED Physician Documentation ---
PD HPI ABD PAIN - Stated complaint Stated Complaint: RT ABD PX - Chief complaint Chief Complaint: Abd Pain - History obtained from History obtained from: Patient - Additional information Additional information: Patient is a 76-year-old male with a known right inguinal hernia presenting for evaluation of increased swelling to the site which she noticed tonight. He reports intermittently he has a dull ache and uses a truss belt Which usually helps him.He usually notices the ache only when he is standing and feels better when he lays down. He has an appointment coming up with Dr. Williamson on August 30 to discuss options for hernia. This evening he felt a bulge in his scrotum which he had not felt before and became concerned. He denies pain, vomiting, constipation. He is able to pass regular bowel movements without difficulty and denies straining for bowel movements. He denies fever, chest pain or difficulty breathing. Review of Systems Constitutional: denies: Fever Nose: denies: Congestion Cardiac: denies: Chest pain / pressure Respiratory: denies: Dyspnea GI: reports: Other (Hernia). denies: Abdominal Pain, Vomiting, Constipation : denies: Dysuria Musculoskeletal: denies: Back pain Neurologic: denies: Headache PD PAST MEDICAL HISTORY - Past Medical History Cardiovascular: Hypertension, High cholesterol, Coronary artery disease, [place], Arrhythmia Respiratory: None Neuro: None Endocrine/Autoimmune: None GI: GERD, Colon polyps, Other : None HEENT: None Psych: None Musculoskeletal: Osteoarthritis Derm: None - Past Surgical History Past Surgical History: Yes General: Appendectomy, Colonoscopy, Other Ortho: Spine surgery Cardiovascular: CABG, Coronary stent - Present Medications Home Medications: Ambulatory Orders Medication Instructions Recorded Confirmed Carvedilol [Coreg] 6.25 mg PO BID 07/14/13 08/27/22 Cholecalciferol (Vitamin D3) 2,000 unit PO DAILY 06/12/18 08/27/22 [Vitamin D] Multivitamin [Multiple Vitamins] 1 each PO DAILY 06/12/18 08/27/22 raNITIdine HCl [Acid Switchman] 75 mg PO DAILY 06/12/18 08/27/22 Rosuvastatin Calcium [Crestor] 40 mg PO HS 03/22/22 08/27/22 Tamsulosin [Flomax] 1 cap PO DAILY 08/27/22 08/27/22 - Allergies Allergies/Adverse Reactions: Allergies Allergy/AdvReac Type Severity Reaction Status Date / Time No Known Drug Allergies Allergy Verified 08/27/22 20:56 - Social History Does the pt smoke?: No Smoking Status: Never smoker Does the pt drink ETOH?: No Does the pt have substance abuse?: No - Immunizations Immunizations are current?: Yes - POLST Patient has POLST: No PD ED PE NORMAL - General General: Alert and oriented X 3, No acute distress, Well developed/nourished - HEENT HEENT: Atraumatic - Neck Neck: Supple, no meningeal sign - Cardiac Cardiac: RRR, Strong equal pulses - Respiratory Respiratory: No respiratory distress, Clear bilaterally - Abdomen Abdomen: Normal bowel sounds, Soft, Non tender, Non distended - Male Male : Other (Right inguinal hernia which is easily reduced, no overlying tenderness, firmness or erythema,No masses or tenderness noted in scrotum or to bilateral testicles) - Derm Derm: Warm and dry - Neuro Neuro: Normal speech Results - Vitals Vitals: Vital Signs - 24 hr 08/27/22 20:50 Temperature 36.6 C Heart Rate 55 L Respiratory 16 Rate Blood Pressure 177/94 H O2 Saturation 98 Oxygen O2 Source Room air PD MEDICAL DECISION MAKING - ED course ED course: Patient presenting for evaluation of known right inguinal hernia. On exam it is easily reducible. There is no overlying erythema, no firmness no tenderness.Patient has an appointment with general surgery in a few days. He was counseled on concerning symptoms to return for as well as signs of incarceration or strangulation. He has no abdominal tenderness. He has no testicular tenderness or masses. He is comfortable with plan for discharge and aware of need for close follow-up. Departure - Departure Disposition: 01 Home, Self Care Clinical Impression: Reducible right inguinal hernia Condition: Stable Instructions: ED Hernia Inguinal Follow-Up: Jorge Williamson MD [Provider Admit Priv/Credential] - Comments: You have a hernia to the right groin region. At this time it is very easily reduced which means that the hernia goes back and Does not seem to be causing you significant pain. Please keep your appointment with Dr. Williamson on August 30. If you have any worsening symptoms such as increased pain, noticing a bulge that does not go back in or seems firm, vomiting or have any concerns please return to the ER. Discharge Date/Time: 08/27/22 21:20
== END 2022-08-27 21:20 | disposition home or self-care (01) ==
LOC: ED 20:47
DX: K40.90 Unilateral inguinal hernia, without obstruction or gangrene, not specified as recurrent (principal); I10 Essential (primary) hypertension
CPT/HCPCS: 99281; 99282

== ENCOUNTER 2022-09-20 07:14 | Day surgery (SDC) | payer MEDICARE, OTHER ==
[~2022-09-20 07:14] MED LIST: BUPIVACAINE 0.25% PF 10 ML VIAL ONE; CEFAZOLIN 2G/50ML 0.9% NS 2 GM/50 ML BAG IV ONE; LACTATED RINGERS 1,000 ML IV ONE; LIDOCAINE MPF 2%-EPI 1:200000 20 ML VIAL ONE; MIDAZOLAM 2 MG/2 ML VIAL ONE; PROPOFOL 500 MG/50 ML 500 MG/50 ML VIAL ONE; fentaNYL 100 MCG/2 ML VIAL ONE
--- NOTE | 2022-09-20 07:15 | ANESTHESIA ---
Pre-Anesthesia VS, & Labs - Diagnosis right inguinal hernia - Procedure right inguinal hernia repair Vital Signs: Temp Pulse Resp BP Pulse Ox O2 Flow Rate 36.6 C 63 16 160/88 H 96 09/20/22 06:51 09/20/22 06:51 09/20/22 06:51 09/20/22 06:51 09/20/22 06:51 Height: 5 ft 6 in Weight (kg): 77 kg Body Mass Index: 27.3 BMI Classification: Overweight - NPO >8 hours Home Medications and Allergies Home Medications: Ambulatory Orders Aspirin [Aspirin EC] 81 mg PO DAILY 09/08/22 Famotidine [Pepcid] 20 mg PO DAILY 09/08/22 Naproxen Sodium [Aleve] 440 mg PO BID 09/08/22 Carvedilol [Coreg] 6.25 mg PO BID 07/14/13 Cholecalciferol (Vitamin D3) [Vitamin D] 2,000 unit PO DAILY 06/12/18 Multivitamin [Multiple Vitamins] 1 each PO DAILY 06/12/18 Rosuvastatin Calcium [Crestor] 40 mg PO HS 03/22/22 Tamsulosin [Flomax] 0.4 mg PO DAILY 08/27/22 Aspirin [Aspirin EC] 81 mg PO DAILY 09/08/22 Famotidine [Pepcid] 20 mg PO DAILY 09/08/22 Naproxen Sodium [Aleve] 440 mg PO BID 09/08/22 Allergies/Adverse Reactions: Allergies Allergy/AdvReac Type Severity Reaction Status Date / Time No Known Drug Allergies Allergy Verified 09/20/22 07:01 Anes History & Medical History - Anesthetic History Anesthesia Complications: reports: No previous complications - Medical History Cardiovascular: reports: Hypertension, High cholesterol, Coronary artery disease, [place], Arrhythmia Pulmonary: reports: None Gastrointestinal: reports: GERD, Ulcers, Colon polyps Urinary: reports: Benign prostate hypertrophy Neuro: reports: None Musculoskeletal: reports: Osteoarthritis Endocrine/Autoimmune: reports: None Blood Disorders: reports: None Skin: reports: None Smoking Status: Never smoker History of Cancer?: No - Surgical History General: reports: Appendectomy, Colonoscopy, Other Cardiothoracic: reports: CABG, Coronary stent Orthopedic: reports: Spine surgery Exam General: Alert, Oriented x3, Cooperative Dental: WNL, Other (few gold fillings, none loose) Mouth Opening: Greater than 4 Fingerbreadths Mallampati classification: I Thyromental Distance: greater than 6 cm Respiratory: Lungs clear Cardiovascular: Regular rate, Normal S1, Normal S2 Plan Anesthesia Type: General Consent for Procedure(s) Verified and Reviewed: Yes Code Status: Attempt Resuscitation ASA classification: 3-Severe systemic disease Is this case an emergency?: No
[2022-09-20] MEDS ORDERED: ONDANSETRON 4 MG/2 ML VIAL IVP PRN (08:10)
[2022-09-20] MEDS ORDERED: METOCLOPRAMIDE 10 MG/2 ML VIAL IVP PRN (08:10)
[2022-09-20] MEDS ORDERED: ePHEDrine 50 MG/ML VIAL IVP PRN (08:10)
[2022-09-20] MEDS ORDERED: ATROPINE ABBOJECT 1 MG/10 ML SYRINGE IVP PRN (08:10)
[2022-09-20] MEDS ORDERED: fentaNYL 100 MCG/2 ML VIAL IVP PRN (08:10)
[2022-09-20] MEDS ORDERED: NALOXONE 0.4 MG/ML VIAL IVP PRN (08:10)
[2022-09-20] MEDS ORDERED: MORPHINE 2 MG/ML CARPUJECT IVP PRN (08:10)
[2022-09-20] MEDS ORDERED: HYDROmorphone 0.5 MG/0.5 ML SYRINGE IVP PRN (08:10)
[2022-09-20] MEDS ORDERED: BUPIVACAINE 0.25% PF 10 ML VIAL SUBQ ONE (08:11)
[2022-09-20] MEDS ORDERED: LACTATED RINGERS 1,000 ML IV SCH (09:00)
[2022-09-20] MEDS ORDERED: LACTATED RINGERS 1,000 ML IV ONE (09:10)
--- NOTE | 2022-09-20 09:16 | OPERATIVE REPORT ---
Operative Report - General Procedure Date: 09/20/22 Planned Procedure: open right inguinal hernia repair with mesh Pre-Op Diagnosis: right inguinal hernia Procedure Performed: open right inguinal hernia repair with mesh Post Op Diagnosis: right inguinal hernia, incarcerated, slider type - Procedure Note Primary Surgeon: caity smith Anesthesia Technique: General LMA, Local Pathology: not sent Estimated Blood Loss (mL): 2 Drain/Tube Type: Other (none) Indications: painful hernia with bowel Findings: as above slider with bladder Complications: none - Other Other Information/Narrative: The patient was properly identified brought to the operating room and placed in supine position. Laryngeal mask anesthesia was induced. Sequential compression devices were used. He was prepped and draped in a sterile fashion and given preoperative antibiotics. The hernia was reduced. A 5 to 6 cm incision was made in the direction of Natalya's lines just cephalad to the pubic tubercle. Dissection proceeded with cutting current. The superficial epigastric vein was identified clamped divided and tied with 3-0 Vicryl. Dissection proceeded down to the aponeurosis. This was opened in the direction of the fibers extending to the external ring. The cord structures were mobilized and brought up. The ilioinguinal nerve was kept with the cord structures. He had nearly 4 x 6 cm of incarcerated preperitoneal adipose tissue. This was mobilized away from the cord structures clamped divided and tied with 2-0 silk. He had an indirect hernia sac measuring approximately 4 x 6 cm. It was mobilized away from the cord structures and then opened. Bladder was carefully mobilized and reduced. The hernia sac was then suture ligated with a 2-0 silk. He had a direct defect as well. Polypropylene mesh was cut to size and placed Serena fashion. And was secured with multiple interrupted 0 Ethibond sutures. Sutures were placed along the pubic tubercle area and Rony's ligament along the shelving border of Poupart's ligament and medially along musculature or fascia of the internal oblique. Care was taken not to entrap the iliohypogastric nerve which was evident. The medial tail of the mesh was secured to the shelving border of Poupart's ligament with 2 interrupted 0 Ethibond sutures recreating an internal ring of appropriate size. The aponeurosis was closed with a running 2-0 Vicryl suture with care not to entrap the underlying structures. Josh's was closed with interrupted 3-0 Vicryl suture. Buried interrupted subdermal 3-0 Vicryl sutures were then placed. Skin was closed with a 4-0 Monocryl subcuticular suture. Dressing was applied. Tolerated the procedure well was awakened and brought to recovery in good condition.
[2022-09-20] MEDS ORDERED: ONDANSETRON 4 MG/2 ML VIAL ONE (09:33)
--- NOTE | 2022-09-20 09:35 | ANESTHESIA POST OP EVALUATION ---
Anesthesia Post Eval - Post Anesthesia Eval Vitals: Last Vital Signs Temp 36.8 C 09/20/22 09:30 Pulse 55 L 09/20/22 09:30 Resp 16 09/20/22 09:30 BP 155/87 H 09/20/22 09:30 Pulse Ox 98 09/20/22 09:30 O2 Flow Rate CV Function Including HR & BP: Stable Pain Control: Satisfactory Nausea & Vomiting: Negative Mental Status: Baseline Respiratory Status: Airway Patent Hydration Status: Satisfactory Anesthesia Complications: None
[2022-09-20 11:38] VITALS: BP 148/76
== END 2022-09-20 07:15 | disposition home or self-care (01) ==
LOC: SDS 07:14
PROVIDERS: ATTEND Surgery
DX: K40.30 Unilateral inguinal hernia, with obstruction, without gangrene, not specified as recurrent (principal); I10 Essential (primary) hypertension
CPT/HCPCS: 49507; C1781; J0690; J7120

== ENCOUNTER 2022-09-22 20:19 | Outpatient (CLI) | payer MEDICARE, OTHER | END 2022-09-22 20:20 | disposition critical access hospital (66) | LOC: EMS 20:19 | DX: R10.31 Right lower quadrant pain (principal); Z98.890 Other specified postprocedural states | CPT/HCPCS: A0425 ×3 ==

== ENCOUNTER 2022-09-22 20:30 | Emergency (ER) | payer MEDICARE, OTHER ==
--- NOTE | 2022-09-22 20:53 | ED Physician Documentation ---
PD HPI ABD PAIN - Stated complaint Stated Complaint: ABD PX - Chief complaint Chief Complaint: Abd Pain - History obtained from History obtained from: Patient - Additional information Additional information: Patient is a 76-year-old male with recent right inguinal hernia repair by Dr. Williamson presenting for evaluation of worsening pain. His surgery was on September 20.He reports having increased pain since returning home. He has tramadol and Tylenol at home for pain and last used tramadol this morning.He has not had a bowel movement since his surgery but reports passing gas. He is using Fiber wit hout any change. He has associated nausea. He denies vomiting. He reports normal urination and appetite. He is tolerating p.o. He does not take a blood thinner. Review of Systems Constitutional: denies: Fever Nose: denies: Congestion Throat: denies: Sore throat Cardiac: denies: Chest pain / pressure Respiratory: denies: Dyspnea GI: reports: Abdominal Pain, Nausea. denies: Vomiting, Diarrhea : denies: Dysuria Musculoskeletal: denies: Back pain Neurologic: denies: Headache PD PAST MEDICAL HISTORY - Past Medical History Cardiovascular: Hypertension, High cholesterol, Coronary artery disease, [place], Arrhythmia Respiratory: None Neuro: None Endocrine/Autoimmune: None GI: GERD, Ulcers, Colon polyps : Benign prostate hypertrophy HEENT: Chronic vision loss, Chronic hearing loss Psych: Depression Musculoskeletal: Osteoarthritis Derm: None - Past Surgical History Past Surgical History: Yes General: Appendectomy, Colonoscopy, Other Ortho: Spine surgery Cardiovascular: CABG, Coronary stent - Present Medications Home Medications: Ambulatory Orders Medication Instructions Recorded Confirmed Carvedilol [Coreg] 6.25 mg PO BID 07/14/13 09/22/22 Cholecalciferol (Vitamin D3) 2,000 unit PO DAILY 06/12/18 09/22/22 [Vitamin D] Multivitamin [Multiple Vitamins] 1 each PO DAILY 06/12/18 09/22/22 Rosuvastatin Calcium [Crestor] 40 mg PO HS 03/22/22 09/22/22 Tamsulosin [Flomax] 0.4 mg PO DAILY 08/27/22 09/22/22 Aspirin [Aspirin EC] 81 mg PO DAILY 09/08/22 09/22/22 Famotidine [Pepcid] 20 mg PO DAILY 09/08/22 09/22/22 Naproxen Sodium [Aleve] 440 mg PO BID 09/08/22 09/22/22 traMADol [Ultram] 50 mg PO Q6H PRN #30 tablet 09/20/22 09/22/22 Docusate Sodium 100Mg Capsule 100 mg PO BID #14 cap 09/23/22 [Colace 100Mg Capsule] - Allergies Allergies/Adverse Reactions: Allergies Allergy/AdvReac Type Severity Reaction Status Date / Time No Known Drug Allergies Allergy Verified 09/22/22 20:40 - Social History Does the pt smoke?: No Smoking Status: Never smoker Does the pt drink ETOH?: No Does the pt have substance abuse?: No - Immunizations Immunizations are current?: Yes - POLST Patient has POLST: No PD ED PE NORMAL - General General: Alert and oriented X 3, No acute distress, Well developed/nourished - HEENT HEENT: Atraumatic, Moist mucous membranes - Neck Neck: Supple, no meningeal sign - Cardiac Cardiac: RRR, Strong equal pulses - Respiratory Respiratory: No respiratory distress, Clear bilaterally - Abdomen Abdomen: Normal bowel sounds, Soft, Non distended, Other (Mild right lower quadrant tenderness) - Male Male : [employer] Buffer present, Other (Dressing in place With no visible bleeding, mild swelling and contusion to surgical site With overlying tenderness) - Derm Derm: Warm and dry Results - Vitals Vitals: Vital Signs - 24 hr 09/22/22 09/22/22 09/22/22 20:45 21:37 22:59 Temperature 36.8 C 36.8 C Heart Rate 64 55 L 61 Respiratory 18 12 16 Rate Blood Pressure 160/81 H 175/83 H 153/61 H O2 Saturation 98 94 98 09/23/22 00:23 Temperature 36.8 C Heart Rate 63 Respiratory 16 Rate Blood Pressure 146/68 H O2 Saturation 98 Oxygen O2 Source Room air - Labs Labs: Laboratory Tests 09/22/22 09/22/22 09/22/22 20:57 20:57 21:03 WBC 7.3 RBC 4.47 L Hgb 13.7 L Hct 41.7 L MCV 93.3 MCH 30.6 MCHC 32.9 RDW 13.2 Plt Count 229 MPV 10.4 Neut # (Auto) 3.9 Lymph # (Auto) 2.2 Josephine # (Auto) 0.7 Eos # (Auto) 0.3 Baso # (Auto) 0.1 Absolute Nucleated RBC 0.00 Nucleated RBC % 0.0 Sodium 134 L Potassium 3.8 Chloride 98 L Carbon Dioxide 30 Anion Gap 6.0 BUN 15 Creatinine 0.7 Estimated GFR (MDRD) 109 Glucose 113 H Calcium 9.1 Total Bilirubin 0.5 AST 17 ALT 22 Alkaline Phosphatase 41 L Total Protein 6.5 L Albumin 3.7 Globulin 2.8 Albumin/Globulin Ratio 1.3 Lipase 38 Urine Color YELLOW Urine Clarity CLEAR Urine pH 7.0 Ur Specific Tullos 1.015 Urine Protein NEGATIVE Urine Glucose (UA) NEGATIVE Urine Ketones NEGATIVE Urine Occult Blood NEGATIVE Urine Nitrite NEGATIVE Urine Bilirubin NEGATIVE Urine Urobilinogen 0.2 (NORMAL) Ur Leukocyte Esterase NEGATIVE Ur Microscopic Review NOT INDICATED Urine Culture Comments NOT INDICATED PD MEDICAL DECISION MAKING - ED course Complexity details: reviewed results, re-evaluated patient, d/w patient, d/w family ED course: Patient presenting for evaluation of right inguinal pain, status post hernia repair surgery. His vital signs are stable. He does have localized tenderness but no peritoneal signs.Labs are reviewed. CT was obtained which has expected postoperative changes.There was incidental finding of possible AV fistula in the right groin which I do not think is a contributing factor. Patient was advised regarding this finding and need for outpatient follow-up.Patient has only taken 1 dose of pain medication which was earlier this morning. I reiterated the importance of staying on top of his pain. I will also start the patient on a stool softener as he has not yet had a bowel movement postoperatively.No signs of bowel obstruction. Patient tolerating p.o.Patient and daughter at bedside are counseled regarding need for close follow-up with Dr. Williamson as well as concerning symptoms to return for. Departure - Departure Disposition: 01 Home, Self Care Clinical Impression: Post-operative pain Condition: Good Instructions: ED Post Op Pain Prescriptions: Docusate Sodium 100Mg Capsule [Colace 100Mg Capsule] 100 mg PO BID #14 cap Comments: Please continue taking the pain medication prescribed to you by Dr. Williamson As recommended. I will also start you on a stool softener and have sent this prescription to the [facility] pharmacy. Please have close follow-up with Dr. Williamson.If you have any worsening symptoms, Please return to the ER. I would also recommend close follow-up with your primary care doctor. On the CT scan that we did this evening there was an irregularity noticed with the right Sided blood vessels. The radiologist is recommending an outpatient ultrasound which your PCP can order (Asymmetric early enhancement of the right common femoral, external iliac, and common iliac veins. 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 Further evaluation may obtained with Doppler ultrasound.) Discharge Date/Time: 09/23/22 00:23
[2022-09-22 21:02] LABS: BASOPHILS # (AUTO) 0.1 10^3/uL (0.0-0.1); BASOPHILS % (AUTO) 0.7 %; EOSINOPHILS # (AUTO) 0.3 10^3/uL (0.0-0.7); EOSINOPHILS % (AUTO) 4.6 %; HCT - HEMATOCRIT 41.7 % (42.0-52.0); HGB - HEMOGLOBIN 13.7 g/dL (14.0-18.0); LYMPHOCYTES # (AUTO) 2.2 10^3/uL (1.5-3.5); LYMPHOCYTES % (AUTO) 30.3 %; MEAN CORPUSCULAR HEMOGLOBIN 30.6 pg (27.0-31.0); MEAN CORPUSCULAR HGB CONC 32.9 g/dL (32.0-36.0); MEAN CORPUSCULAR VOLUME 93.3 fL (80.0-94.0); MEAN PLATELET VOLUME 10.4 fL (7.4-11.4); MONOCYTES # (AUTO) 0.7 10^3/uL (0.0-1.0); MONOCYTES % (AUTO) 9.9 %; NEUTROPHILS # (AUTO) 3.9 10^3/uL (1.5-6.6); NEUTROPHILS % (AUTO) 54.2 %; PLT - PLATELET COUNT 229 10^3/uL (130-450); RED BLOOD COUNT 4.47 10^6/uL (4.70-6.10); RED CELL DISTRIBUTION WIDTH 13.2 % (12.0-15.0); WHITE BLOOD COUNT 7.3 x10^3/uL (4.8-10.8)
[2022-09-22] MEDS: ONDANSETRON 4 MG/2 ML VIAL IVP STA (21:02)
[2022-09-22] MEDS: MORPHINE 2 MG/ML CARPUJECT IVP STA (21:02)
[2022-09-22 21:08] LABS: BILIRUBIN,URINE NEGATIVE (NEGATIVE); GLUCOSE, URINE (UA) NEGATIVE (NEGATIVE); KETONES,URINE (UA) NEGATIVE (NEGATIVE); LEUKOCYTE ESTERASE, URINE NEGATIVE (NEGATIVE); NITRITE,URINE NEGATIVE (NEGATIVE); OCCULT BLOOD,URINE NEGATIVE (NEGATIVE); PROTEIN,URINE NEGATIVE (NEGATIVE); UROBILINOGEN,URINE 0.2 (NORMAL) E.U./dL (NORMAL)
[2022-09-22 21:12] LABS: CLARITY,URINE CLEAR (CLEAR)
[2022-09-22 21:15] LABS: ALBUMIN 3.7 g/dL (3.2-5.5); ALBUMIN/GLOBULIN RATIO 1.3 (1.0-2.2); BILIRUBIN,TOTAL 0.5 mg/dL (0.2-1.0); CALCIUM 9.1 mg/dL (8.5-10.3); CREATININE 0.7 mg/dL (0.6-1.2); POTASSIUM 3.8 mmol/L (3.5-5.0); TOTAL PROTEIN 6.5 g/dL (6.7-8.2)
[2022-09-22] MEDS ORDERED: iohexoL-300 100 ML VIAL ONE (22:29)
--- NOTE | 2022-09-22 23:59 | CT Report ---
PROCEDURE: ABDOMEN/PELVIS W INDICATIONS: R inguinal pain; hernia repair 09/20 CONTRAST: Omni 300 100ml TECHNIQUE: After the administration of intravenous contrast, 5 mm thick sections acquired from the diaphragms to the symphysis. 5 mm thick coronal and sagittal reformats were acquired. For radiation dose reducti on, the following was used: automated exposure control, adjustment of mA and/or kV according to mari ent size. COMPARISON: CT abdomen pelvis 05/05/2022. FINDINGS: Image quality: Excellent. Lung bases:There is mild atelectasis and scarring in the lung bases. Heart: Heart is normal in size. There is a small hiatal hernia. ABDOMEN: Liver:There is a small hypodensity redemonstrated in the right hepatic lobe measuring up to 0.6 cm w hich is too small to characterize but likely represents a cyst. Gallbladder: Within normal limits without calcified gallstones. Biliary ducts: No biliary ductal dilatation. Pancreas: Unremarkable. Spleen: Normal in size. Adrenal Glands: No adrenal nodules. Kidneys and Ureters: No hydronephrosis. Stomach and Bowel: Stomach, small bowel loops, and colon are normal in caliber and wall thickness. N o pericecal inflammatory changes to suggest appendicitis. There is colonic diverticulosis without acu te diverticulitis. Peritoneum: No abnormal intraperitoneal fluid. No free air. Ventral Wall: No hernia. Abdominal Nodes: No retroperitoneal or mesenteric adenopathy by size criteria. Vessels: Aorta and inferior vena cava are normal in size.There is early asymmetric enhancement of t he rightcommon femoral vein as well as the external and common iliac veins. PELVIS: Pelvic Organs: Unremarkable. Bladder:Bladder is partially distended. Pelvic Nodes: No enlarged lymph nodes. Miscellaneous: There is fat stranding and a small amount of fluid within the right inguinal canal con sistent with sequelae of reported recent inguinal hernia repair. No definite evidence of recurrent he rnia. No associated loculated fluid collections to suggest an abscess. There is mild associated overl ariel subcutaneous venous fat stranding and small foci of soft tissue gas consistent with sequelae of recent surgery. Bones: Visualized osseous structures demonstrate no suspicious focal lesions. IMPRESSION: 1. Edema and fluid in the right inguinal canal consistent with sequelae of recent surgical repair. No definite evidence of recurrent inguinal hernia. No discrete likely fluid collections to suggest an a bscess. No intraperitoneal or retroperitoneal hematomas. 2. Asymmetric early enhancement of the right common femoral, external iliac, and common iliac veins. 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 Further evaluation may obtained with Doppler ultrasound. Reviewed by: Jose E Bean MD on 09/23/2022 12:07 AM [facility] Approved by: Jose E Bean MD on 09/23/2022 12:07 AM [facility] Station ID: [id number]
[2022-09-23] MEDS: iohexoL-300 100 ML VIAL IVP ONE (00:22)
[2022-09-23 00:25] VITALS: BP 146/68
== END 2022-09-23 00:23 | disposition home or self-care (01) ==
LOC: EDUNIT# → ED 20:30
DX: G89.18 Other acute postprocedural pain (principal); R10.31 Right lower quadrant pain
CPT/HCPCS: 36415; 74177; 80053; 81003; 83690; 85025; 96374; 99284; Q9967; 81001; 87086

== ENCOUNTER 2022-12-16 13:03 | Day surgery (SDC) | payer MEDICARE, OTHER ==
[2022-12-16] MEDS ORDERED: LACTATED RINGERS 1,000 ML IV ONE (13:10)
--- NOTE | 2022-12-16 14:45 | ANESTHESIA ---
Pre-Anesthesia VS, & Labs - Diagnosis screening - Procedure colonoscopy Vital Signs: Temp Pulse Resp BP Pulse Ox O2 Flow Rate 36.5 C 61 16 135/90 H 99 12/16/22 13:15 12/16/22 13:15 12/16/22 13:15 12/16/22 13:15 12/16/22 13:15 Height: 5 ft 6 in Weight (kg): 77 kg Body Mass Index: 27.3 BMI Classification: Overweight - NPO >8 hours Home Medications and Allergies Carvedilol [Coreg] 6.25 mg PO BID 07/14/13 Cholecalciferol (Vitamin D3) [Vitamin D] 2,000 unit PO DAILY 06/12/18 Multivitamin [Multiple Vitamins] 1 each PO DAILY 06/12/18 Rosuvastatin Calcium [Crestor] 40 mg PO HS 03/22/22 Allergies/Adverse Reactions: Allergies Allergy/AdvReac Type Severity Reaction Status Date / Time oxycodone AdvReac Nausea Verified 12/15/22 14:03 Anes History & Medical History - Anesthetic History Anesthesia Complications: reports: No previous complications - Medical History Cardiovascular: reports: Hypertension, High cholesterol, Coronary artery disease, [place], Arrhythmia Pulmonary: reports: None Gastrointestinal: reports: GERD, Ulcers, Colon polyps Urinary: reports: Benign prostate hypertrophy Neuro: reports: None Musculoskeletal: reports: Osteoarthritis Endocrine/Autoimmune: reports: None Blood Disorders: reports: None Skin: reports: None Smoking Status: Never smoker - Surgical History General: reports: Appendectomy, Colonoscopy, Other Cardiothoracic: reports: CABG, Coronary stent Orthopedic: reports: Spine surgery, Other Exam General: Alert, Oriented x3 Dental: WNL Mouth Opening: Greater than 4 Fingerbreadths Mallampati classification: II Respiratory: Lungs clear Cardiovascular: Regular rate Plan Anesthesia Type: Total IV Consent for Procedure(s) Verified and Reviewed: Yes Code Status: Attempt Resuscitation ASA classification: 3-Severe systemic disease Is this case an emergency?: Yes
[2022-12-16] MEDS ORDERED: PROPOFOL 500 MG/50 ML 500 MG/50 ML VIAL ONE (14:47)
--- NOTE | 2022-12-16 15:17 | HISTORY & PHYSICAL EXAMINATION ---
Chief Complaint - Chief Complaint Chief Complaint: history colon polyps History of Present Illness - History Obtained From Records Reviewed: yes History obtained from: pt Exam Limitations: none - History of Present Illness HPI Comment/Other: history numerous colon polyps History - Past Medical History Cardiovascular: reports: Hypertension, High cholesterol, Coronary artery disease, [place], Arrhythmia Respiratory: reports: None Neuro: reports: None Endocrine/Autoimmune: reports: None GI: reports: GERD, Ulcers, Colon polyps : reports: Benign prostate hypertrophy HEENT: reports: Chronic vision loss, Chronic hearing loss Psych: reports: Depression Musculoskeletal: reports: Osteoarthritis Derm: reports: None MRSA Hx?: No - Past Surgical History General: reports: Appendectomy, Colonoscopy, Other Ortho: reports: Spine surgery, Other Cardiovascular: reports: CABG, Coronary stent - POLST Patient has POLST: No Meds/Allgy - Home Medications Home Medications: Ambulatory Orders Medication Instructions Recorded Confirmed Carvedilol [Coreg] 6.25 mg PO BID 07/14/13 12/15/22 Cholecalciferol (Vitamin D3) 2,000 unit PO DAILY 06/12/18 12/15/22 [Vitamin D] Multivitamin [Multiple Vitamins] 1 each PO DAILY 06/12/18 12/15/22 Rosuvastatin Calcium [Crestor] 40 mg PO HS 03/22/22 12/16/22 Docusate Sodium 100Mg Capsule 100 mg PO BID #14 cap 09/23/22 12/16/22 [Colace 100Mg Capsule] - Allergies Allergies/Adverse Reactions: Allergies Allergy/AdvReac Type Severity Reaction Status Date / Time oxycodone AdvReac Nausea Verified 12/15/22 14:03 Review of Systems - Other Findings Other Findings: 10 pt ros as above otherwise unremarkable Exam - Vital Signs Reviewed Vital Signs: Yes Vital Signs: Vital Signs x48h Temp Pulse Resp BP Pulse Ox 12/16/22 13:15 36.5 C 61 16 135/90 H 99 - Physical Exam General Appearance: positive: No acute distress, Alert Eyes Bilateral: positive: PERRL, EOMI, No scleral icterus ENT: positive: No signs of dehydration Neck: positive: No JVD, Trachea midline Respiratory: positive: No respiratory distress, Breath sounds nml Cardiovascular: positive: Regular rate & rhythm Abdomen: positive: Non-tender, No distention Neurologic/Psychiatric: positive: Oriented x3 Conclusion/Plan - Problem List (1) History of adenomatous polyp of colon Conclusion/Plan: plan colonoscopy. parq held and consent obtained
[2022-12-16] MEDS ORDERED: LACTATED RINGERS 200 ML IV ONE (16:05)
--- NOTE | 2022-12-16 16:33 | ANESTHESIA POST OP EVALUATION ---
Anesthesia Post Eval - Post Anesthesia Eval Vitals: Last Vital Signs Temp 36.2 C L 12/16/22 16:30 Pulse 61 12/16/22 16:30 Resp 12 12/16/22 16:30 BP 135/71 H 12/16/22 16:30 Pulse Ox 98 12/16/22 16:30 O2 Flow Rate CV Function Including HR & BP: Stable Pain Control: Satisfactory Nausea & Vomiting: Negative Mental Status: Baseline Respiratory Status: Airway Patent Hydration Status: Satisfactory Anesthesia Complications: None
[2022-12-16 16:43] VITALS: BP 141/61
== END 2022-12-16 13:04 | disposition home or self-care (01) ==
LOC: SDS 13:03
PROVIDERS: ATTEND Surgery
PROC: 0DBL8ZX Excision of Transverse Colon, Via Natural or Artificial Opening Endoscopic, Diagnostic (ICD-10-PCS; 2022-12-16)
PROC: 0DBH8ZX Excision of Cecum, Via Natural or Artificial Opening Endoscopic, Diagnostic (ICD-10-PCS; 2022-12-16)
PROC: 0DBK8ZX Excision of Ascending Colon, Via Natural or Artificial Opening Endoscopic, Diagnostic (ICD-10-PCS; principal; 2022-12-16 14:15)
DX: K63.5 Polyp of colon (principal); D12.2 Benign neoplasm of ascending colon; D12.0 Benign neoplasm of cecum; D12.3 Benign neoplasm of transverse colon; I10 Essential (primary) hypertension
CPT/HCPCS: 45380; 45385; J7120

== ENCOUNTER 2023-08-29 08:32 | Outpatient (CLI) | payer MEDICARE, OTHER ==
[2023-08-29 08:44] LABS: BASOPHILS # (AUTO) 0.1 10^3/uL (0.0-0.1); EOSINOPHILS # (AUTO) 0.3 10^3/uL (0.0-0.7); EOSINOPHILS % (AUTO) 4.4 %; HCT - HEMATOCRIT 45.9 % (42.0-52.0); HGB - HEMOGLOBIN 15.2 g/dL (14.0-18.0); LYMPHOCYTES # (AUTO) 2.6 10^3/uL (1.5-3.5); LYMPHOCYTES % (AUTO) 36.7 %; MEAN CORPUSCULAR HEMOGLOBIN 30.5 pg (27.0-31.0); MEAN CORPUSCULAR HGB CONC 33.1 g/dL (32.0-36.0); MONOCYTES # (AUTO) 0.7 10^3/uL (0.0-1.0); MONOCYTES % (AUTO) 9.8 %; NEUTROPHILS # (AUTO) 3.4 10^3/uL (1.5-6.6); PLT - PLATELET COUNT 274 10^3/uL (130-450); RED BLOOD COUNT 4.99 10^6/uL (4.70-6.10); RED CELL DISTRIBUTION WIDTH 13.1 % (12.0-15.0); WHITE BLOOD COUNT 7.1 x10^3/uL (4.8-10.8)
[2023-08-29 08:59] LABS: BUN - BLOOD UREA NITROGEN 12 mg/dL (6-20); CALCIUM 9.4 mg/dL (8.5-10.3); CARBON DIOXIDE - CO2 32 mmol/L (21-32); CHLORIDE 103 mmol/L (101-111); CHOL/HDL RATIO 2.2 (<5.0); CHOLESTEROL 103 mg/dL; CREATININE 0.8 mg/dL (0.6-1.3); GFR - MDRD 93 (>89); GLUCOSE 111 mg/dL (74-104); HDL CHOLESTEROL 46 mg/dL; LDL CHOLESTEROL,CALCULATED 44 mg/dL; POTASSIUM 4.5 mmol/L (3.5-4.5); SODIUM 138 mmol/L (135-145); TRIGLYCERIDES 67 mg/dL (48-352); VLDL CHOLESTEROL 13 mg/dL
== END 2023-08-29 08:33 | disposition home or self-care (01) ==
LOC: LAB 08:32
PROVIDERS: ATTEND Internal Medicine Cardiovascular Disease
DX: E78.5 Hyperlipidemia, unspecified (principal); I25.10 Atherosclerotic heart disease of native coronary artery without angina pectoris
CPT/HCPCS: 36415; 80048; 80061; 83721; 85025

== ENCOUNTER 2024-08-24 17:01 | Observation (INO) ==
--- NOTE | 2024-08-24 21:03 | ED Physician Documentation ---
PD HPI ANIMAL BITE Stated complaint Stated Complaint: CAT BITE Chief complaint Chief Complaint: Wound Additional information Additional information: 78-year-old male was seen yesterday here in the emergency department for cat bite to left hand. He has no pertinent past medical history no immunocompromise no type 2 diabetes. He was started on Augmentin and he said that he is taken a total of 3 doses has not missed any doses but started to notice increase left hand swelling and streaking going up his left arm. He said that he has been feeling low-grade fevers at home has not checked his temperature but is feeling generalized unwell and was told to come to the emergency department if this begins to happen. Meds/Allgy Home Medications Ambulatory Orders Medication Instructions Recorded Confirmed carvedilol 6.25 mg tablet (Coreg) 6.25 mg PO BID 07/14/13 12/15/22 cholecalciferol (vitamin D3) 50 2,000 unit PO DAILY 06/12/18 12/15/22 mcg (2,000 unit) capsule (Vitamin D3) multivitamin (Multiple Vitamins 1 ea PO DAILY 06/12/18 12/15/22 tablet) rosuvastatin 40 mg tablet (Crestor) 40 mg PO HS 03/22/22 12/16/22 docusate sodium 100 mg capsule 100 mg PO BID #14 caps 09/23/22 12/16/22 (Stool Softener) amoxicillin 875 mg-potassium 1 tab PO BID #10 tabs 08/23/24 clavulanate 125 mg tablet Allergies Allergies Allergy/AdvReac Type Severity Reaction Status Date / Time oxycodone AdvReac Nausea Verified 08/23/24 14:27 [facility] Medical History Medical History (Updated 08/24/24 @ 23:03 by Lennox Quesada DNP) Atherosclerotic heart disease of artery bypass graft Surgical History Surgical History Hx of inguinal hernia surgery Social History Social History Smoking Status: Never smoker Do you dip or chew tobacco?: No Patient requests smoking cessation consult: No Initiate information on smoking cessation: No Relationship: Do you feel safe in your home environment?: Yes Suffered physical, verbal, emotional, or financial abuse?: No History of Abuse: No Are you sexually active?: No POLST Patient has POLST: No Exam Constitutional normal general appearance, no apparent distress, average body habitus, no limitations and alert Extremities LUE: Significant swelling to the dorsal aspect of left hand with erythema and puncture wound to mid-dorsal aspect of hand Without any obvious purulent drainage. Multiple lines of streaking up patient's left forearm. Results Vitals Vitals: Vital Signs - 24 hr 08/24/24 18:13 Temperature 37.0 C Temperature Source Oral Pulse Rate 60 Respiratory Rate 17 Blood Pressure 190/86 H O2 Saturation 97 O2 Source Room air Pain Intensity 9 Oxygen O2 Source Room air Labs Labs: Laboratory Tests 08/24/24 21:14 WBC 11.2 H RBC 4.73 Hgb 14.3 Hct 44.5 MCV 94.1 H MCH 30.2 MCHC 32.1 RDW 13.0 Plt Count 241 MPV 10.1 Neut # (Auto) 7.4 H Lymph # (Auto) 2.5 [place] # (Auto) 1.1 H Eos # (Auto) 0.2 Baso # (Auto) 0.1 Absolute Nucleated RBC 0.00 Nucleated RBC % 0.0 Sodium 138 Potassium 4.0 Chloride 103 Carbon Dioxide 29 Anion Gap 6.0 BUN 15 Creatinine 0.7 Estimated GFR (MDRD) 109 Glucose 104 Calcium 9.7 Total Bilirubin 0.4 AST 13 ALT 13 Alkaline Phosphatase 43 Total Protein 6.8 Albumin 4.1 Globulin 2.7 Albumin/Globulin Ratio 1.5 PD Medical Decision Making ED course ED course: 78-year-old male presents emergency department for cat bite infection to left h and. Patient is in kind of the neumann area of failed outpatient antibiotic therapy as he was bit yesterday and was started on antibiotics around 1400 yesterday. He is taken a total of 3 doses of Augmentin but is feeling overall worse with generalized malaise feels like he has been having low-grade fevers (we have not caught any fever since he has been here) and now significant worsening swelling to the left dorsal aspect of his hand with very obvious streaking up his left forearm. Patient was given 1 dose of Unasyn here in the emergency department to see if this would help with the infection and really no improvement and patient says that he still feeling pretty unwell. I did consider broadening his antibiotics to doxycycline and having him come back to the emergency department tomorrow for further checkup and evaluation but patient does not feel comfortable with this plan and thinks that he would benefit from being admitted to the hospital. Unfortunately 2 sets of blood cultures were collected after the Unasyn was ordered. I spoke with Dr. Ordonez and she has graciously agreed to admit the patient and believes that this is a fair admit given patient's symptoms. He does have some mild leukocytosis, white count 11.2 with no CMP abnormalities. Greatly appreciate Dr. Colindres's care for the patient and grateful she is agreeing to admit the patient. Discharge Plan Discharge Patient Disposition: 66 [facility] DC/Xfer Condition: Good Clinical Impression: Infectious tenosynovitis, Infected cat bite of hand Prescriptions: No Action carvedilol [Coreg] 6.25 MG tablet 6.25 mg PO BID multivitamin [Multiple Vitamins] 1 EACH tablet 1 ea PO DAILY cholecalciferol (vitamin D3) [Vitamin D3] 2,000 UNIT capsule 2,000 unit PO DAILY rosuvastatin [Crestor] 40 MG tablet 40 mg PO HS docusate sodium [Stool Softener] 100 MG capsule 100 mg PO BID Qty: 14 0RF amoxicillin-pot clavulanate 875-125 mg tablet 1 tab PO BID Qty: 10 0RF Print Language: Occitan
[2024-08-24 21:19] LABS: BASOPHILS # (AUTO) 0.1 10^3/uL (0.0-0.1); BASOPHILS % (AUTO) 0.6 %; EOSINOPHILS # (AUTO) 0.2 10^3/uL (0.0-0.7); EOSINOPHILS % (AUTO) 1.8 %; HCT - HEMATOCRIT 44.5 % (42.0-52.0); HGB - HEMOGLOBIN 14.3 g/dL (14.0-18.0); LYMPHOCYTES # (AUTO) 2.5 10^3/uL (1.5-3.5); LYMPHOCYTES % (AUTO) 21.8 %; MEAN CORPUSCULAR HEMOGLOBIN 30.2 pg (27.0-31.0); MEAN CORPUSCULAR HGB CONC 32.1 g/dL (32.0-36.0); MEAN CORPUSCULAR VOLUME 94.1 fL (80.0-94.0); MEAN PLATELET VOLUME 10.1 fL (7.4-11.4); MONOCYTES # (AUTO) 1.1 10^3/uL (0.0-1.0); MONOCYTES % (AUTO) 9.7 %; NEUTROPHILS # (AUTO) 7.4 10^3/uL (1.5-6.6); NEUTROPHILS % (AUTO) 65.9 %; PLT - PLATELET COUNT 241 10^3/uL (130-450); RED BLOOD COUNT 4.73 10^6/uL (4.70-6.10); WHITE BLOOD COUNT 11.2 x10^3/uL (4.8-10.8)
[2024-08-24 21:34] LABS: ALBUMIN 4.1 g/dL (3.2-5.5); ALBUMIN/GLOBULIN RATIO 1.5 (1.0-2.2); BILIRUBIN,TOTAL 0.4 mg/dL (0.2-1.0); CALCIUM 9.7 mg/dL (8.5-10.3); CREATININE 0.7 mg/dL (0.6-1.3); TOTAL PROTEIN 6.8 g/dL (6.4-8.9)
[2024-08-24] MEDS: AMPICILLIN/SULBACTAM 3 GM in SODIUM CHLORIDE 0.9% MINIBAG 100 ML IV STA (21:44)
--- NOTE | 2024-08-24 23:09 | HISTORY & PHYSICAL EXAMINATION ---
Chief Complaint Chief Complaint Chief Complaint: R hand wound History of Present Illness Admitted From Admitted From:: ER History Obtained From Records Reviewed: Yes History obtained from: Pt, staff, chart Exam Limitations: Virtual Exam History of Present Illness HPI Comment/Other: H&P was conducted via video remotely, using [employer]. [place] Phys[place] No one is at bedside. 86 yo M with PMH of CAD S/P CABG, BPH presented to the ER with c/o 1 day h/o increased L hand cat bite wound swelling, redness, and pain. Pt's cat has Asthma and has been receiving regular injections for this from the vet. Yesterday, the pt caught his cat to take her to the vet, but the cat did not want to go and bit the pt on his L hand. He washed the wound with soap and water, then caught her with a towel and took her to the vet. He told the vet about the bite and she recommended that he seek medical care. He called his PCP, but was unable to make a timely appointment, so came to the ER yesterday. He arrived to the ER at 2:30P. He did have puncture wounds, with no redness, discharge per exam. Pt says that he did have some clear oozing with blood from the wound. No discolored oozing. No oozing today.He was prescribed Augmentin and went home. He has taken 3 doses of the Augmentin so far. Today, he began to have redness and swelling of his L hand and the redness and swelling began to spread up his forearm, so he came back to the ER today. +Subj F/C, +fatigue. No CP/SOB/N/V. In the ER, BP 190/86, WBC 11.2, BC pending. Pt was given Unasyn IV in the ER. Review of Systems Status of ROS: 10 or more systems reviewed and unremarkable except as noted in history and below [facility] Medical History Medical History (Updated 08/24/24 @ 23:03 by Lennox Quesada DNP) Atherosclerotic heart disease of artery bypass graft Surgical History Surgical History Hx of inguinal hernia surgery Social History Social History Smoking Status: Never smoker Do you dip or chew tobacco?: No Patient requests smoking cessation consult: No Initiate information on smoking cessation: No Relationship: Do you feel safe in your home environment?: Yes Suffered physical, verbal, emotional, or financial abuse?: No History of Abuse: No Are you sexually active?: No POLST Patient has POLST: No Meds/Allgy Home Medications Ambulatory Orders Medication Instructions Recorded Confirmed carvedilol 6.25 mg tablet (Coreg) 6.25 mg PO BID 07/14/13 12/15/22 cholecalciferol (vitamin D3) 50 2,000 unit PO DAILY 06/12/18 12/15/22 mcg (2,000 unit) capsule (Vitamin D3) multivitamin (Multiple Vitamins 1 ea PO DAILY 06/12/18 12/15/22 tablet) rosuvastatin 40 mg tablet (Crestor) 40 mg PO HS 03/22/22 12/16/22 docusate sodium 100 mg capsule 100 mg PO BID #14 caps 09/23/22 12/16/22 (Stool Softener) amoxicillin 875 mg-potassium 1 tab PO BID #10 tabs 08/23/24 clavulanate 125 mg tablet Allergies Allergies Allergy/AdvReac Type Severity Reaction Status Date / Time oxycodone AdvReac Nausea Verified 08/23/24 14:27 Exam Constitutional normal general appearance and no apparent distress HENMT normocephalic Eyes EOMs intact bilaterally and no scleral icterus Respiratory cart stethoscope not working; per ER Provider: CTA B/L Cardiovascular cart stethoscope not working; per ER Provider: RRR, no murmurs Gastrointestinal per ER Provider: non-distended, NT, Soft Extremities L Hand: +visibly erythematous and swollen; difficult to see in detail via video. Per ER Provider: LUE: Significant swelling to the dorsal aspect of left hand with erythema and puncture wound to mid-dorsal aspect of hand Without any obvious purulent drainage. Multiple lines of streaking up patient's left forearm. Neurology A+Ox3, normal speech, cooperative; per ER Provider: NFD Conclusion/Plan Problem List (1) Infected cat bite of hand: Qualifiers: Encounter type: subsequent encounter Laterality: right Qualified Code(s): S61.451D - Open bite of right hand, subsequent encounter; L08.9 - Local infection of the skin and subcutaneous tissue, unspecified; W55.01XD - Bitten by cat, subsequent encounter Plan L Hand Cat Bite wound with Cellulitis Leukocytosis Failed outpatient therapy -WBC 11.2, BC pending. -Pt was given Unasyn IV in the ER. -admit to Obs/Med Surg -IVF -continue Unsasyn IV -monitor swelling/erythema -F/U BC CAD S/P CABG HTN -BP 190/86 -continue home medications: Coreg, Crestor, ASA -Hydralazine PRN BPH -continue home medications: Flomax VTE Prophylaxis: Lovenox Code Status: D/W pt; he is Full Code ~Domitila Colindres MD Hospitalist Lab Results Lab results reviewed: Yes 08/24/24 21:14 08/24/24 21:14
[2024-08-24] MEDS ORDERED: SODIUM CHLORIDE FLUSH 0.9% 10 ML SYRINGE IVP PRN (23:35)
[2024-08-24] MEDS ORDERED: ONDANSETRON ODT 4 MG TABLET TL PRN (23:35)
[2024-08-25] MEDS ORDERED: hydrALAZINE 10 MG TABLET PO PRN (00:32)
[2024-08-25] MEDS: ACETAMINOPHEN 325 MG TABLET PO PRN (00:57)
[2024-08-25] MEDS: LACTATED RINGERS 1,000 ML IV SCH (00:58)
[2024-08-25] MEDS: SODIUM CHLORIDE FLUSH 0.9% 10 ML SYRINGE IVP SCH (01:02)
[2024-08-25] MEDS: AMPICILLIN/SULBACTAM 3 GM in SODIUM CHLORIDE 0.9% MINIBAG 100 ML IV SCH (03:54)
[2024-08-25 07:28] LABS: BASOPHILS % (AUTO) 0.4 %; EOSINOPHILS # (AUTO) 0.2 10^3/uL (0.0-0.7); EOSINOPHILS % (AUTO) 2.4 %; HCT - HEMATOCRIT 39.7 % (42.0-52.0); HGB - HEMOGLOBIN 13.5 g/dL (14.0-18.0); LYMPHOCYTES # (AUTO) 2.2 10^3/uL (1.5-3.5); LYMPHOCYTES % (AUTO) 28.2 %; MEAN CORPUSCULAR HEMOGLOBIN 31.3 pg (27.0-31.0); MEAN CORPUSCULAR VOLUME 91.9 fL (80.0-94.0); MEAN PLATELET VOLUME 10.5 fL (7.4-11.4); MONOCYTES # (AUTO) 0.9 10^3/uL (0.0-1.0); MONOCYTES % (AUTO) 11.8 %; NEUTROPHILS # (AUTO) 4.5 10^3/uL (1.5-6.6); NEUTROPHILS % (AUTO) 56.8 %; PLT - PLATELET COUNT 216 10^3/uL (130-450); RED BLOOD COUNT 4.32 10^6/uL (4.70-6.10); RED CELL DISTRIBUTION WIDTH 13.1 % (12.0-15.0); WHITE BLOOD COUNT 7.9 x10^3/uL (4.8-10.8)
[2024-08-25 07:31] LABS: CREATININE 0.7 mg/dL (0.6-1.3); POTASSIUM 3.5 mmol/L (3.5-4.5)
[2024-08-25] MEDS: TAMSULOSIN 0.4 MG CAPSULE PO SCH (08:44)
[2024-08-25] MEDS: MULTIVITAMIN TABLET PO SCH (08:44)
[2024-08-25] MEDS: ASPIRIN EC 81 MG TABLET PO SCH (08:44)
[2024-08-25] MEDS: carvediloL 3.125 MG TABLET PO SCH (08:44)
[2024-08-25] MEDS: ENOXAPARIN 40 MG/0.4 ML SYRINGE SUBQ SCH (08:45)
[2024-08-25] MEDS: ONDANSETRON 4 MG/2 ML VIAL IVP PRN (13:00)
--- NOTE | 2024-08-25 13:08 | PHARMACY PROGRESS NOTE ---
Best Possible Medication History Admit Date and Time: 08/25/24 [id number] Processed by: Pharmacy Medications reviewed in ED?: No Medication History completed: Yes Patient Interview: Completed Secondary Source(s): Pharmacy records and Insurance records [facility] Statement: As the person ultimately responsible for medication therapy, providers are able to order a medication from an existing home medication list in [facility] via the "Reconcile Routine" prior to Confirmation of that medication by application support engineer. Such practice is discouraged except when the physician, in their clinical judgment, deems that a medical need exists for a medication without regard to previous use.
--- NOTE | 2024-08-25 16:19 | Discharge Summary ---
Discharge Summary Admit Date: 08/25/24 Discharge Date: 08/25/24 Discharging Provider: Bunny Whitehead NP Primary Care Provider: Mohan Fish Code Status: Attempt Resuscitation DIAGNOSES Admission Diagnoses: Cellulitis Leukocytosis Hypertension Infected cat bite Discharge Diagnoses with Status of Each Condition: Cellulitisactive Leukocytosisresolved Hypertensionchronic Infected cat biteactive HPI History of Present Illness: 86-year-old male PMH significant for CAD status post CABG, BPH, hypertension presented to the ER with left hand swelling.Yesterday, he was bitten by his cat while trying to get it to the vet and was instructed to seek medical care. He went to the ER yesterday, and was sent home on Augmentin. He presented back to the ER because the redness and swelling in his hand began to spread up his forearm. In the ER, workup was significant for elevated white blood cell count of11.2. Hospitalist was contacted overnight for admission HOSPITAL COURSE Hospital Course: Patient was placed in observation, and was initiated on Unasyn. Overnight, his leukocytosis resolved, and his swelling in his hand has gone down. He will be discharged on increased dose of Augmentin, as Unasyn has resolved his leukocytosis and improved his cellulitis ALLERGIES Allergies Allergy/AdvReac Type Severity Reaction Status Date / Time oxycodone AdvReac Nausea Verified 08/23/24 14:27 MEDICATIONS Ambulatory Orders Medication Instructions Recorded Confirmed carvedilol 6.25 mg tablet (Coreg) 6.25 mg PO BID 07/14/13 08/25/24 multivitamin (Multiple Vitamins 1 ea PO DAILY 06/12/18 08/25/24 tablet) rosuvastatin 40 mg tablet (Crestor) 40 mg PO HS 03/22/22 08/25/24 amoxicillin 500 mg-potassium 2 tab PO BID 14 days #56 tabs 08/25/24 clavulanate 125 mg tablet (Augmentin) aspirin 81 mg tablet,delayed 81 mg PO DAILY 08/25/24 08/25/24 release (Adult Aspirin Regimen) ibuprofen 200 mg tablet 200 mg PO TID PRN pain #30 tabs 08/25/24 pantoprazole 20 mg tablet,delayed 20 mg PO DAILY 08/25/24 08/25/24 release psyllium husk 0.4 gram capsule 0.4 g PO DAILY 08/25/24 08/25/24 (Daily Fiber) tamsulosin 0.4 mg capsule 0.4 mg PO DAILY 08/25/24 08/25/24 PHYSICAL EXAM AT DISCHARGE General Appearance: positive No acute distress Eyes Bilateral: positive Normal inspection and PERRL ENT: positive ENT inspection nml Neck: positive Nml inspection Respiratory: positive Chest non-tender and No respiratory distress Cardiovascular: positive Regular rate & rhythm Peripheral Pulses: positive 2+ Abdomen: positive Non-tender Skin: positive Skin rash (Cellulitic rash surrounding scabs on dorsal aspect of left hand. Areas of erythema marked) Extremities: positive Other (Swelling right hand as above) Neurologic/Psychiatric: positive Oriented x3 LABS 08/25/24 06:50 08/25/24 06:50 DIAGNOSTIC IMAGING Diagnostic Imaging Results: Final report reviewed Diagnostic Imaging Results Comments: X-ray left hand no foreign bodies SEPSIS Current Stage of Sepsis: Ruled out FOLLOW UP Follow Up: With PCP TIME SPENT Time Spent in Discharge (Minutes): 25 Discharge Plan Discharge Patient Disposition: 01 Home, Self Care Condition: Good Medically Cleared Date:: 08/25/24 Prescriptions: New ibuprofen 200 mg tablet 200 mg PO TID PRN (Reason: pain) Qty: 30 0RF amoxicillin-pot clavulanate [Augmentin] 500-125 mg tablet 2 tab PO BID 14 Days Qty: 56 0RF Continued carvedilol [Coreg] 6.25 MG tablet 6.25 mg PO BID multivitamin [Multiple Vitamins] 1 EACH tablet 1 ea PO DAILY rosuvastatin [Crestor] 40 MG tablet 40 mg PO HS pantoprazole 20 mg tablet,delayed release (DR/EC) 20 mg PO DAILY Patient Comments: take 1 tablet by mouth once daily 30 MINUTES BEFORE EVENING MEAL tamsulosin 0.4 mg capsule 0.4 mg PO DAILY psyllium husk [Daily Fiber] 0.4 gram capsule 0.4 g PO DAILY aspirin [Adult Aspirin Regimen] 81 mg tablet,delayed release (DR/EC) 81 mg PO DAILY Discontinued amoxicillin-pot clavulanate 875-125 mg tablet 1 tab PO BID Qty: 10 0RF Diet: Regular Health Concerns: You are a 78-year-old man who presented to the hospital with an infected cat bite. We held you in observation status, and initiated IV antibiotics. These antibiotics are similar to the antibiotics you had at home. I am sending you home on the same drug you are on before you were in the hospital, but at a higher dose and for a longer duration. I would like you to take the antibiotics as prescribed, until the bottle is empty. I also suggest you take Motrin for pain/swelling. I have ordered this, but it is also available [id number]. Please return to the ER if swelling worsens, or if you develop fever, chills, or if you notice swelling tracking up your arm as it did before Plan of Treatment: Finish course of antibiotics Motrin for pain Report to the ER with any increase in swelling or new fevers Print Language: Hungarian Patient Instructions: Antibiotics Stand Alone Forms: PCP List Follow-up Care: Mohan Fish MD [Primary Care Provider] -
[2024-08-25 16:33] VITALS: O2SAT 94
[2024-08-25] MEDS: PROCHLORPERAZINE 5 MG TABLET PO PRN (16:37)
--- NOTE | 2024-08-25 16:48 | XRAY Report ---
PROCEDURE: XR Hand 3+V LT INDICATIONS: Cat bite, please evaluate for foreign body TECHNIQUE: 3 views of the hand(s) acquired. COMPARISON: None. FINDINGS: Bones: No fractures or dislocations. No suspicious bony lesions. Soft tissues: No suspicious soft tissue calcifications or masses. No radiopaque foreign bodies are seen. IMPRESSION: No radiopaque foreign bodies are seen. Reviewed by: Manolo Galloway MD on 08/25/2024 3:47 PM [email or web address] Approved by: Manolo Galloway MD on 08/25/2024 3:47 PM AKDT Station ID: [id number]
[2024-08-25] MEDS ORDERED: ATORVASTATIN 40 MG TABLET PO SCH (21:00)
[2024-08-25] MEDS ORDERED: NON FORMULARY MED (Rosuvastatin [Crestor] 40 MG tablet) PO SCH (21:00)
== END 2024-08-25 18:22 | disposition home or self-care (01) ==
LOC: ED 17:01 → MS2 17:01
PROVIDERS: ADMIT Internal Medicine; ATTEND Internal Medicine
DX: L03.114 Cellulitis of left upper limb; I25.10 Atherosclerotic heart disease of native coronary artery without angina pectoris; I10 Essential (primary) hypertension; S61.452A Open bite of left hand, initial encounter; Z95.1 Presence of aortocoronary bypass graft; N40.0 Benign prostatic hyperplasia without lower urinary tract symptoms; W55.01XA Bitten by cat, initial encounter